=== PATIENT | female | born 1995 | race American Indian/Alaskan Native ===

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

== ENCOUNTER 2017-07-16 09:37 | Emergency (ER) | payer MEDICAID ==
[2017-07-16 10:01] VITALS: BP 118/99
--- NOTE | 2017-07-16 10:46 | EDM.PDOC ---
Scribed by Rayna Briones 07/16/17 1046 for Rhonda Cuellar NP ED HPI GENERAL MEDICAL PROBLEM - General Chief Complaint: Fever Stated Complaint: COUGH FEVER THROWING UP Time Seen by Provider: 07/16/17 10:15 Source of Information: Reports: Patient, RN, RN Notes Reviewed History Limitations: Reports: No Limitations - History of Present Illness INITIAL COMMENTS - FREE TEXT/NARRATIVE: Patient presents to ER with complaint of chest pain, cough, headache, nausea, and swollen glands. She has had fever, chills, sinus congestion, runny nose and sore throat. No vomiting or diarrhea. Duration: Getting Worse Location: Reports: Head, Chest Quality: Reports: Ache Severity: Moderate Improves with: Reports: None Worsens with: Reports: None Associated Symptoms: Reports: No Other Symptoms Headache Pain Score (Numeric/FACES): 6 - Related Data Allergies Allergy/AdvReac Type Severity Reaction Status Date / Time No Known Allergies Allergy Verified 07/16/17 10:16 Home Meds: Home Meds . [No Known Home Meds] 07/16/17 [History] Past Medical History HEENT History: Reports: None Cardiovascular History: Reports: None Respiratory History: Reports: None Gastrointestinal History: Reports: Other (See Below) Other Gastrointestinal History: heartburn with Genitourinary History: Reports: [employer] History: Reports: Musculoskeletal History: Reports: Other (See Below) Other Musculoskeletal History: left forearm Other Endocrine/Metabolic History: TSH 0.01, free T4 1.4 at 16w3d Hematologic History: Reports: Anemia, Blood Transfusion(s) - Infectious Disease History Infectious Disease History: Reports: None - Past Surgical History HEENT Surgical History: Reports: None Cardiovascular Surgical History: Reports: None Respiratory Surgical History: Reports: None GI Surgical History: Reports: Appendectomy Other GI Surgeries/Procedures: at 14yrs Female Surgical History: Reports: None Social & Family History - Family History Family Medical History: Noncontributory - Tobacco Use Smoking Status *Q: Never Smoker Second Hand Smoke Exposure: No - Caffeine Use Caffeine Use: Reports: None - Recreational Drug Use Recreational Drug Use: No ED ROS GENERAL - Review of Systems Review Of Systems: ROS reveals no pertinent complaints other than HPI. ED EXAM, GENERAL - Physical Exam Exam: See Below Exam Limited By: No Limitations General Appearance: Alert, WD/WN, No Apparent Distress Eye Exam: Bilateral Eye: Normal Inspection Ears: Normal External Exam, Normal Canal, Hearing Grossly Normal, Normal TMs Nose: Normal Inspection Throat/Mouth: Other (erythematous throat with +1 tonsils. ) Head: Atraumatic, Normocephalic Neck: Other (+1 anterior and cervical swollen glands. ) Respiratory/Chest: No Respiratory Distress, Lungs Clear, Normal Breath Sounds, No Accessory Muscle Use, Chest Non-Tender Cardiovascular: Normal Peripheral Pulses, Regular Rate, Rhythm, No Edema, No Gallop, No JVD, No Murmur, No Rub GI/Abdominal: Normal Bowel Sounds, Soft, Non-Tender, No Organomegaly, No Distention, No Abnormal Bruit, No Mass (Female) Exam: Deferred Rectal (Female) Exam: Deferred Back Exam: Normal Inspection, Full Range of Motion, NT Extremities: Normal Inspection, Normal Range of Motion, Non-Tender, Normal Capillary Refill, No Pedal Edema Neurological: Alert, Oriented, CN II-XII Intact, Normal Cognition, Normal Gait, Normal Reflexes, No Motor/Sensory Deficits Psychiatric: Normal Affect, Normal Mood Skin Exam: Warm, Dry, Intact, Normal Color, No Rash Lymphatic: No Adenopathy Course - Vital Signs Last Recorded V/S: Last Vital Signs Temp 99.7 F 07/16/17 10:00 Pulse 135 H 07/16/17 10:00 Resp 18 07/16/17 10:00 BP 118/99 H 07/16/17 10:00 Pulse Ox 96 07/16/17 10:00 - Orders/Labs/Meds Orders: Active Orders 24 hr Category Date Time Status CULTURE STREP A CONFIRMATION [] Stat Lab 07/16/17 09:50 Results STREP SCRN A RAPID W CULT CONF [] Stat Lab 07/16/17 09:50 Results Labs: Rapid strep: Negative. Influenza A and B:Negative. Departure - Departure Time of Disposition: 10:44 Disposition: Home, Self-Care 01 Condition: Fair Clinical Impression: Upper respiratory infection Qualifiers: URI type: unspecified viral URI Qualified Code(s): J06.9 - Acute upper respiratory infection, unspecified; B97.89 - Other viral agents as the cause of diseases classified elsewhere; B97.89 - Other viral agents as the cause of diseases classified elsewhere - Discharge Information Instructions: Fever, Adult, [id number] Forms: ED Department Discharge Additional Instructions: Prophylactic RX: Amoxicillin and Tamiflu Tylenol or ibuprofen for fever/pain Drink plenty of fluids Rest Follow up with your primary care facility next week - My Orders Last 24 Hours: My Active Orders 07/16/17 09:50 CULTURE STREP A CONFIRMATION [RM] Stat STREP SCRN A RAPID W CULT CONF [RM] Stat - Assessment/Plan Last 24 Hours: My Active Orders 07/16/17 09:50 CULTURE STREP A CONFIRMATION [RM] Stat STREP SCRN A RAPID W CULT CONF [RM] Stat I have read and agree with the documentation that has been completed regarding this visit. By signing this record, I attest that the documentation was completed in my physical presence and is an accurate record of the encounter.
== END 2017-07-16 10:58 | disposition home or self-care (01) ==
LOC: DL.ED 09:37
DX: J06.9 Acute upper respiratory infection, unspecified (principal)
CPT/HCPCS: 87081; 87430; 87804; 99283

== ENCOUNTER 2018-10-13 11:11 | Emergency (ER) | payer MEDICAID ==
[2018-10-13 11:35] VITALS: BP 138/60
--- NOTE | 2018-10-13 12:38 | EDM.PDOC ---
Scribed by Rayna Briones 10/13/18 1156 for Rhonda Cuellar NP ED HPI GENERAL MEDICAL PROBLEM - General Chief Complaint: ENT Problem Stated Complaint: SORE THROAT Time Seen by Provider: 10/13/18 11:40 Source of Information: Reports: Patient, RN, RN Notes Reviewed History Limitations: Reports: No Limitations - History of Present Illness INITIAL COMMENTS - FREE TEXT/NARRATIVE: Patient presents to ER with complaint of sore throat that she woke up with this morning. She states her child has been sick with tonsillitis and croup and treated with antibiotics and steroids and improving. She has had nasal congestion, post nasal drip, fever and chills. No nausea, vomiting or diarrhea. Onset: Today Duration: Getting Worse Location: Reports: Other (throat) Quality: Reports: Ache Severity: Moderate Improves with: Reports: None Worsens with: Reports: None Associated Symptoms: Reports: No Other Symptoms - Related Data Allergies Allergy/AdvReac Type Severity Reaction Status Date / Time No Known Allergies Allergy Verified 05/30/18 12:33 Home Meds: Home Meds Pnv No.122/Iron/Folic Acid [ Multi Tablet] 1 tab PO DAILY 05/08/18 [ History] Past Medical History HEENT History: Reports: None Cardiovascular History: Reports: None Respiratory History: Reports: Asthma Gastrointestinal History: Reports: GERD Other Gastrointestinal History: heartburn with 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: Musculoskeletal History: Reports: None Other Musculoskeletal History: left forearm Neurological History: Reports: None Psychiatric History: Reports: None Endocrine/Metabolic History: Reports: None Other Endocrine/Metabolic History: TSH 0.01, free T4 1.4 at 16w3d Hematologic History: Reports: Anemia, Blood Transfusion(s) Immunologic History: Reports: None Oncologic (Cancer) History: Reports: None Dermatologic History: Reports: None - Infectious Disease History Infectious Disease History: Reports: None - Past Surgical History Head Surgeries/Procedures: Reports: None HEENT Surgical History: Reports: None Cardiovascular Surgical History: Reports: None Respiratory Surgical History: Reports: None GI Surgical History: Reports: Appendectomy Other GI Surgeries/Procedures: at 14yrs Female Surgical History: Reports: None Social & Family History - Family History Family Medical History: Noncontributory - Tobacco Use Smoking Status *Q: Never Smoker Second Hand Smoke Exposure: No - Caffeine Use Caffeine Use: Reports: None - Recreational Drug Use Recreational Drug Use: No ED ROS ENT - Review of Systems Review Of Systems: ROS reveals no pertinent complaints other than HPI. ED EXAM, ENT - Physical Exam Exam: See Below Exam Limited By: No Limitations General Appearance: Alert, WD/WN, No Apparent Distress Eye Exam: Bilateral Eye: EOMI, Normal Inspection, PERRL Ears: Normal External Exam, Normal Canal, Hearing Grossly Normal, Normal TMs Nose: Normal Inspection, Normal Mucousa, No Blood Mouth/Throat: Peritonsillar Mass, Other (throat erythematous and tonsils +2. ) Head: Atraumatic, Normocephalic Neck: Other (tender bilaterally) Respiratory/Chest: No Respiratory Distress, Lungs Clear, Normal Breath Sounds, No Accessory Muscle Use, Chest Non-Tender Cardiovascular: Normal Peripheral Pulses, Regular Rate, Rhythm, No Edema, No Gallop, No JVD, No Murmur, No Rub GI/Abdominal: Normal Bowel Sounds, Soft, Non-Tender, No Organomegaly, No Distention, No Abnormal Bruit, No Mass (Female) Exam: Deferred Rectal (Female) Exam: Deferred Back: Normal Inspection, Full Range of Motion Extremities: Normal Inspection, Normal Range of Motion, Non-Tender, No Pedal Edema, Normal Capillary Refill Neurological: Alert, Oriented, CN II-XII Intact, Normal Cognition, Normal Gait, Normal Reflexes, No Motor/Sensory Deficits Psychiatric: Normal Affect, Normal Mood Skin: Warm, Dry, Intact, Normal Color, No Rash Lymphatic: Other (+2 tender anterior cervical) Course - Vital Signs Last Recorded V/S: Last Vital Signs Temp 98.3 F 10/13/18 11:30 Pulse 87 10/13/18 11:30 Resp 16 10/13/18 11:30 BP 138/60 10/13/18 11:30 Pulse Ox 98 10/13/18 11:30 - Orders/Labs/Meds Orders: Active Orders 24 hr Category Date Time Status CULTURE STREP A CONFIRMATION [] Stat Lab 10/13/18 11:22 Results STREP SCRN A RAPID W CULT CONF [] Stat Lab 10/13/18 11:22 Results Labs: Rapid strep: Negative. Departure - Departure Time of Disposition: 11:55 Disposition: Home, Self-Care 01 Condition: Fair Clinical Impression: Tonsillitis - Discharge Information *PRESCRIPTION DRUG MONITORING PROGRAM REVIEWED*: No *COPY OF PRESCRIPTION DRUG MONITORING REPORT IN PATIENT CHARLA: No Instructions: Tonsillitis, [id number] Forms: ED Department Discharge Additional Instructions: RX: Amoxicillin Follow up with your primary care facility Drink plenty of fluids May use Tylenol and/or Ibuprofen as directed for pain/fever - My Orders Last 24 Hours: My Active Orders 10/13/18 11:22 CULTURE STREP A CONFIRMATION [RM] Stat STREP SCRN A RAPID W CULT CONF [RM] Stat - Assessment/Plan Last 24 Hours: My Active Orders 10/13/18 11:22 CULTURE STREP A CONFIRMATION [RM] Stat STREP SCRN A RAPID W CULT CONF [RM] Stat I have read and agree with the documentation that has been completed regarding this visit. By signing this record, I attest that the documentation was completed in my physical presence and is an accurate record of the encounter.
== END 2018-10-13 12:00 | disposition home or self-care (01) ==
LOC: DL.ED 11:11
DX: J03.90 Acute tonsillitis, unspecified (principal)
CPT/HCPCS: 87081; 87430; 99283

== ENCOUNTER 2019-03-15 10:18 | Emergency (ER) | payer MEDICAID ==
[2019-03-15 10:43] VITALS: BP 110/91; PULSE 68
--- NOTE | 2019-03-15 11:23 | EDM.PDOC ---
ED HPI GENERAL MEDICAL PROBLEM - General Chief Complaint: ENT Problem Stated Complaint: SICK Time Seen by Provider: 03/15/19 10:45 Source of Information: Reports: Patient History Limitations: Reports: No Limitations - History of Present Illness INITIAL COMMENTS - FREE TEXT/NARRATIVE: ED with c/o sore throat since yesterday, feel scratchy, No fever or chills. Tylenol yesterday. No ear pain. NO cough. 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: Musculoskeletal History: Reports: None Other Musculoskeletal History: left forearm Neurological History: Reports: None Psychiatric History: Reports: None Endocrine/Metabolic History: Reports: None Other Endocrine/Metabolic History: TSH 0.01, free T4 1.4 at 16w3d Hematologic History: Reports: Anemia, Blood Transfusion(s) Immunologic History: Reports: None Oncologic (Cancer) History: Reports: None Dermatologic History: Reports: None - Infectious Disease History Infectious Disease History: Reports: None - Past Surgical History Head Surgeries/Procedures: Reports: None HEENT Surgical History: Reports: None Cardiovascular Surgical History: Reports: None Respiratory Surgical History: Reports: None GI Surgical History: Reports: Appendectomy Other GI Surgeries/Procedures: at 14yrs Female Surgical History: Reports: None Social & Family History - Family History Family Medical History: Noncontributory - Tobacco Use Smoking Status *Q: Never Smoker - Caffeine Use Caffeine Use: Reports: None - Recreational Drug Use Recreational Drug Use: No ED ROS ENT - Review of Systems Review Of Systems: ROS reveals no pertinent complaints other than HPI. ED EXAM, ENT - Physical Exam Exam: See Below Exam Limited By: No Limitations General Appearance: Alert, No Apparent Distress Eye Exam: Bilateral Eye: EOMI Ears: Normal External Exam, Normal TMs Nose: Normal Inspection Mouth/Throat: Pharyngeal Erythema (mild) Head: Atraumatic, Normocephalic Neck: Normal Inspection Respiratory/Chest: No Respiratory Distress, Lungs Clear, Normal Breath Sounds, No Accessory Muscle Use Cardiovascular: Normal Peripheral Pulses, Regular Rate, Rhythm GI/Abdominal: Normal Bowel Sounds, Soft Neurological: Alert, Oriented Psychiatric: Normal Affect Skin: Warm, Dry, Intact, Normal Color Course - Vital Signs Last Recorded V/S: Last Vital Signs Temp 97.8 F 03/15/19 10:37 Pulse 68 03/15/19 10:37 Resp 18 03/15/19 10:37 BP 110/91 H 03/15/19 10:37 Pulse Ox 97 03/15/19 10:37 - Orders/Labs/Meds Orders: Active Orders 24 hr Category Date Time Status CULTURE STREP A CONFIRMATION [RM] Stat Lab 03/15/19 10:21 Results STREP SCRN A RAPID W CULT CONF [] Stat Lab 03/15/19 10:21 Results Departure - Departure Time of Disposition: 11:22 Disposition: Home, Self-Care 01 Condition: Good Clinical Impression: Pharyngitis Qualifiers: Pharyngitis/tonsillitis etiology: unspecified etiology Qualified Code(s): J02.9 - Acute pharyngitis, unspecified - Discharge Information *PRESCRIPTION DRUG MONITORING PROGRAM REVIEWED*: No *COPY OF PRESCRIPTION DRUG MONITORING REPORT IN PATIENT CHARLA: No Instructions: Sore Throat, [id number] Forms: ED Department Discharge Additional Instructions: increase fluids salt water gargles as needed alternate tylenol and ibuprofen every 4 hours as needed for discomfort follow up if symptoms worsen - My Orders Last 24 Hours: My Active Orders 03/15/19 10:21 CULTURE STREP A CONFIRMATION [RM] Stat STREP SCRN A RAPID W CULT CONF [] Stat - Assessment/Plan Last 24 Hours: My Active Orders 03/15/19 10:21 CULTURE STREP A CONFIRMATION [RM] Stat STREP SCRN A RAPID W CULT CONF [] Stat
== END 2019-03-15 11:35 | disposition home or self-care (01) ==
LOC: DL.ED 10:18
DX: J02.9 Acute pharyngitis, unspecified (principal); Z86.2 Personal history of diseases of the blood and blood-forming organs and certain disorders involving the immune mechanism
CPT/HCPCS: 87081; 87430; 99282

== ENCOUNTER 2020-03-23 23:26 | Inpatient (IN) | payer MEDICAID, OTHER ==
[2020-03-24] MEDS ORDERED: Penicillin G Potassium 5,000,000 Unit Vial ONE (00:26)
[2020-03-24] MEDS ORDERED: Tranexamic Acid 1,000 MG in Sodium Chloride 0.9% 100 ML IV PRN (00:30)
[2020-03-24] MEDS ORDERED: Acetaminophen 325 MG Tab PO PRN (00:30)
[2020-03-24] MEDS ORDERED: Misoprostol 400 MCG (4 X 100 MCG TAB) RECTAL PRN (00:30)
[2020-03-24] MEDS ORDERED: Carboprost Tromethamine 250 MCG/1 ML Amp IM PRN (00:30)
[2020-03-24] MEDS ORDERED: Lidocaine 1% 30 ML SDV INJECT PRN (00:30)
[2020-03-24] MEDS ORDERED: Ondansetron 4 MG/2 ML SDV IVPUSH PRN (00:30)
[2020-03-24] MEDS ORDERED: Methylergonovine 0.2 MG/1 ML Amp IM PRN (00:30)
[2020-03-24] MEDS ORDERED: Sodium Chloride 0.9% 10 ML Syringe FLUSH PRN (00:30)
[2020-03-24] MEDS ORDERED: Lactated Ringers 1,000 ML IV SCH (00:30)
--- NOTE | 2020-03-24 00:41 | US ---
PROCEDURE INFORMATION: Exam: US , Limited Exam date and time: 03/24/2020 12:06 AM Age: 24 years old Clinical indication: Antepartum complications; Other: No care; ; Patient HX: ? Size and dates, placenta location, lie TECHNIQUE: Imaging protocol: Real-time ultrasound of the maternal uterus with image documentation. Exam focused on the clinical indication. COMPARISON: No relevant prior studies available. FINDINGS: Gestation: Single intrauterine gestational sac with single viable fetus. The sports activities foul judge reports spontaneous movement during the exam. Limited assessment of anatomy. stomach, bladder, and kidneys are unremarkable. heart rate: heart rate is 147 BPM. Presentation: Cephalic presentation. Placenta: The placental location is fundal. No evidence of placental abruption. Amniotic fluid: Amniotic fluid volume is subjectively within normal limits. BIOMETRY: Gestational age (AUA): 37 weeks, 4 days. Estimated delivery date is 04/10/2020. Estimated weight: 3442 g (7 lb, 9 oz) Biparietal diameter: 8.5 cm (34 weeks, 2 days) Head circumference: 32.0 cm (36 weeks, 1 day) Abdominal circumference: 34.7 cm (38 weeks, 5 days) Femur length: 8.0 cm (41 weeks, 0 days) MATERNAL: Cervix: The cervix is not well seen on this exam. IMPRESSION: Limited obstetric ultrasound. Single viable intrauterine gestation with estimated gestational age of 37 weeks, 4 days. No acute findings.
--- NOTE | 2020-03-24 00:58 | PCM.LDHP ---
L&D History of Present Illness - General Date of Service: 03/24/20 (Admit H&P) Admit Problem/Dx: Patient Status Order with Admit Dx/Problem 03/24/20 00:30 Patient Status [ADT] Routine Admission Diagnosis/Problem Admission Diagnosis/Problem Labor established Source of Information: Patient, Old Records, Provider, RN History Limitations: Reports: No Limitations, Other (no care) - History of Present Illness Introduction:: 24yo NA who presents in labor with no care but appears near term. baby active. no bleeding no LOF no pre-E sx. taking gummy vitamins only. no allergies. cxns started this evening, getting stronger and closer. no other concerns. Timing/Duration: Reports: minutes: (2-5), getting worse Location, : Reports: Uterus Severity: Moderate Associated Symptoms: Reports: vaginal discharge - Related Data Allergies/Adverse Reactions: Allergies Allergy/AdvReac Type Severity Reaction Status Date / Time No Known Allergies Allergy Verified 03/23/20 23:45 Home Medications: Home Meds Vit with Ca/FA/Iron [ Plus Iron] 1 tab PO DAILY 03/23/20 [History] Past Medical History HEENT History: Reports: None Cardiovascular History: Reports: None Respiratory History: Reports: Asthma Gastrointestinal History: Reports: GERD Other Gastrointestinal History: heartburn with 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 see notes for details. hmb Musculoskeletal History: Reports: None Other Musculoskeletal History: left forearm Neurological History: Reports: None Psychiatric History: Reports: None Endocrine/Metabolic History: Reports: None Other Endocrine/Metabolic History: TSH 0.01, free T4 1.4 at 16w3d Hematologic History: Reports: Anemia, Blood Transfusion(s) Immunologic History: Reports: None Oncologic (Cancer) History: Reports: None Dermatologic History: Reports: None - Infectious Disease History Infectious Disease History: Reports: None - Past Surgical History Head Surgeries/Procedures: Reports: None HEENT Surgical History: Reports: None Cardiovascular Surgical History: Reports: None Respiratory Surgical History: Reports: None GI Surgical History: Reports: Appendectomy Other GI Surgeries/Procedures: at 14yrs Female Surgical History: Reports: None Social & Family History - Family History Family Medical History: Noncontributory Other OBGYN Family History: mom with SAB X 2 Neurological: Reports: Seizure (dad) Endocrine/Metabolic: Reports: Diabetes, type II (mom and PGM) - Tobacco Use Smoking Status *Q: Never Smoker Second Hand Smoke Exposure: No - Caffeine Use Caffeine Use: Reports: Soda - Alcohol Use Alcohol Use History: No Alcohol Use Comment: denies use. hmb - Recreational Drug Use Recreational Drug Use: No Drug Use in Last 12 Months: Yes Recreational Drug Type: Reports: Marijuana/Hashish Recreational Drug Use Comment: denies current use--marijuana during first part--states helped with nausea. hmb - Living Situation & Occupation Living situation: Reports: Single, with Family Social History [place] MGF, and her 4 children. 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 FOB is involved "some"--this is their first child together. Plans to keep child and parent. denies cigarete smoking or alcohol use. Admits to marijuana use during early --states it helped with her nausea. Denies any other illicit drug use. H&P Review of Systems - Review of Systems: Review Of Systems: Comprehensive ROS is negative, except as noted in HPI. (will plan flu shot before discharge.) L&D Exam - Exam Exam: See Below - Vital Signs Weight: 136 lb - OB Specific Contraction Intensity: Moderate to Strong Movement: Active Heart Tones: Present Heart Tones per Min: 145 Heart Rate (FHR) Variability: Moderate (6-25 bmp) Presentation: Vertex Estimated Weight: 7 1/2 # +/- - Quiroz Score Quiroz Score Cervix Position: Midposition Quiroz Score Consistency: Soft Quiroz Score Effacement: >80% Quiroz Score Dilation: > 5 cm Quiroz Score Infant's Station: +1, +2 Quiroz Score Total: 12 - Exam General: Alert, Oriented HEENT: Conjunctiva Clear, EOMI, Hearing Intact, Nares Patent, PERRLA Neck: Supple, Trachea Midline Lungs: Clear to Auscultation, Normal Respiratory Effort Cardiovascular: Regular Rate, Regular Rhythm GI/Abdominal Exam: Normal Bowel Sounds, Soft, Non-Tender, No Abnormal Bruit, Pelvis Stable Rectal Exam: Normal Exam, Deferred Genitourinary: Normal external exam, Cervical dilitation, Enlarged uterus Back Exam: Normal Inspection, Full Range of Motion Extremities: Normal Inspection, Normal Range of Motion, Non-Tender, No Pedal Edema, Normal Capillary Refill Skin: Warm, Dry, Intact Neurological: Strength Equal Bilateral, Normal Speech, Normal Tone, Sensation Intact Psychiatric: Alert, Normal Affect, Normal Mood - Patient Data Lab Results Last 24 hrs: Laboratory Results - last 24 hr 03/23/20 03/23/20 Range/Units 23:37 23:37 WBC 8.3 (5.0-10.0) 10^3/uL RBC 4.47 (4.2-5.4) 10^6/uL Hgb 10.1 L D (12.0-16.0) g/dL Hct 32.7 L (37.0-47.0) % MCV 73.2 L D (80-100) fL MCH 22.6 L (27.0-34.0) pg MCHC 30.9 L (33.0-35.0) g/dL Plt Count 176 (150-450) 10^3/uL BUN 8 (7-18) mg/dL Creatinine 0.57 (0.55-1.02) mg/dL Est Cr Clr Drug Dosing 122.44 mL/min Estimated GFR (MDRD) > 60 Uric Acid 4.7 (2.6-6.0) mg/dL AST 15 (15-37) U/L ALT 15 (14-59) U/L Lactate Dehydrogenase 306 H (81-234) U/L Result Diagrams: 03/23/20 23:37 03/23/20 23:37 Imaging Impressions Last 24 hrs: Ultrasound: SLIUP, vertex, FHR 147 AFV WNL EFW 7lb 9oz measurements: FL 41w, AC 38w5d, HC 36w1d, BPD 34w2d, AUA 37w4d see reports for details. hmb - Problem List (1) Term SNOMED Code(s): 46965826 ICD Code: Z34.90 - ENCNTR FOR SUPRVSN OF NORMAL , UNSP, UNSP TRIMESTER Status: Acute Current Visit: Yes (2) No care in current SNOMED Code(s): 128442968 ICD Code: O09.30 - SUPRVSN OF PREG W INSUFFICIENT ANTENAT CARE, UNSP TRIMESTER Status: Acute Current Visit: Yes (3) Blood type O- SNOMED Code(s): 965344780 ICD Code: Z67.41 - TYPE O BLOOD, RH NEGATIVE Status: Acute Current Visit: Yes (4) Screening for group B Streptococcus not performed SNOMED Code(s): 082403943 ICD Code: MNT8954 - Status: Acute Current Visit: Yes (5) High risk , antepartum SNOMED Code(s): 00854256 ICD Code: O09.90 - SUPERVISION OF HIGH RISK , UNSP, UNSP TRIMESTER Status: Acute Current Visit: Yes (6) Anemia affecting SNOMED Code(s): 75687510 ICD Code: O99.019 - ANEMIA COMPLICATING , UNSPECIFIED TRIMESTER Status: Acute Current Visit: Yes (7) Needs flu shot Status: Acute Current Visit: Yes (8) Hx of sexually transmitted disease SNOMED Code(s): 046771762 ICD Code: Z86.19 - PERSONAL HISTORY OF OTHER INFECTIOUS AND PARASITIC DISEASES Status: Acute Current Visit: Yes (9) Hx of pre-eclampsia, prior , currently SNOMED Code(s): 198171581010691, 984167894556501 ICD Code: O09.299 - SUPRVSN OF PREG W POOR REPRODCTV OR OBSTET HISTORY, UNSP TRI Status: Acute Current Visit: Yes (10) History of severe pre-eclampsia SNOMED Code(s): 271887896 ICD Code: Z87.59 - PERSONAL HISTORY OF COMP OF PREG, CHLDBRTH AND THE PUERP Status: Acute Current Visit: Yes (11) Hx of transfusion of whole blood SNOMED Code(s): 322691659 ICD Code: Z92.89 - PERSONAL HISTORY OF OTHER MEDICAL TREATMENT Status: Acute Current Visit: Yes Problem List Initiated/Reviewed/Updated: Yes Orders Last 24hrs: Active Orders 24 hr Category Date Time Status Patient Status [ADT] Routine ADT 03/24/20 00:30 Active Communication Order [RC] ASDIRECTED Care 03/24/20 00:30 Active Heart Rate [RC] CONTINUOUS Care 03/23/20 23:24 Active Heart Tones [RC] PER UNIT ROUTINE Care 03/24/20 00:30 Active Non Stress Test [RC] PER UNIT ROUTINE Care 03/24/20 00:32 Active Notify Provider Vital Signs OB [RC] ASDIRECTED Care 03/24/20 00:30 Active Notify Provider [RC] PRN Care 03/24/20 00:30 Active OB Check [OM.PC] Click To Edit Care 03/23/20 23:24 Ordered POC Labs [RC] ASDIRECTED Care 03/23/20 23:24 Active Up ad [place] [RC] ASDIRECTED Care 03/24/20 00:30 Active Vital Signs [RC] PER UNIT ROUTINE Care 03/24/20 00:30 Active Regular Diet [DIET] Diet 03/24/20 Breakfast Active CHLAMYDIA AND GONORRHEA BY TMA Routine Lab 03/23/20 23:37 Received CORONAVIRUS COVID-19 THA [MOLEC] Stat Lab 03/24/20 00:37 Ordered CORONAVIRUS COVID-19 PCR PHL Stat Lab 03/24/20 00:30 Ordered CULTURE GROUP B STREP [RM] Routine Lab 03/23/20 23:43 Received DRUG SCREEN URINE BIORAD [URCHEM] Routine Lab 03/23/20 23:43 Received HBSAG SCREEN [REF] Urgent Lab 03/23/20 23:37 Received HEP C VIRUS AB [REF] Urgent Lab 03/23/20 23:37 Received HIV-1/2 AG/AB COMBO 4TH GEN [CHEM] Routine Lab 03/23/20 23:24 Ordered MISC TEST Routine Lab 03/23/20 23:24 Ordered PROTEIN/CREATININE RATIO,URINE [URCHEM] Routine Lab 03/23/20 23:59 Received RPR (SYPHILIS SERO) W/ RFLX [REF] Routine Lab 03/23/20 23:37 Received RUBELLA ANTIBODY, IGG [REF] Routine Lab 03/23/20 23:37 Received TYPE AND SCREEN [BBK] Routine Lab 03/23/20 23:37 Received UA RFX OMI AND CULT IF INDIC [URIN] Routine Lab 03/23/20 23:43 Received WET PREP [MYC] Routine Lab 03/23/20 23:43 Received Acetaminophen [TylenoL] Med 03/24/20 00:30 Active 650 mg PO Q4H PRN Carboprost Tromethamine [Hemabate DS] Med 03/24/20 00:30 Active 250 mcg IM ASDIRECTED PRN Lactated Ringers [Ringers, Lactated] 1,000 ml Med 03/24/20 00:30 Active IV ASDIRECTED Lidocaine 1% [Xylocaine-MPF 1%] Med 03/24/20 00:30 Active 30 ml INJECT ASDIRECTED PRN Methylergonovine [Methergine] Med 03/24/20 00:30 Active 0.2 mg IM ASDIRECTED PRN Ondansetron [Zofran] Med 03/24/20 00:30 Active 4 mg IVPUSH Q4H PRN Oxytocin/Normal Saline [Pitocin in NS 30 UNIT/500 ML] Med 03/24/20 00:30 Active 30 unit in 500 ml IV TITRATE Penicillin G Potassium [Pfizerpen] 2.5 millunits Med 03/24/20 05:00 Active Sodium Chloride 0.9% [Normal Saline] 100 ml IV Q4H Penicillin G Potassium [Pfizerpen] 5 millunits Med 03/24/20 01:00 Active Sodium Chloride 0.9% [Normal Saline] 100 ml IV ONETIME Sodium Chloride 0.9% [Saline Flush] Med 03/24/20 00:30 Active 10 ml FLUSH ASDIRECTED PRN Tranexamic Acid [Cyklokapron] 1,000 mg Med 03/24/20 00:30 Active Sodium Chloride 0.9% [Normal Saline] 100 ml IV ONETIME miSOPROStoL [Cytotec] Med 03/24/20 00:30 Active 800 mcg RECTAL ASDIRECTED PRN Saline Lock Insert [OM.PC] Routine Oth 03/24/20 00:30 Ordered Resuscitation Status Routine Resus Stat 03/24/20 00:30 Ordered Medication Orders Acetaminophen (Tylenol) 650 mg PO Q4H PRN PRN Reason: Pain (Mild 1-3) and fever Carboprost Tromethamine (Hemabate Ds) 250 mcg IM ASDIRECTED PRN PRN Reason: HEMORRHAGE Lactated Ringer's (Ringers, Lactated) 1,000 mls @ 125 mls/hr IV ASDIRECTED IRENA Tranexamic Acid 1,000 mg/ (Sodium Chloride) 110 mls @ 660 mls/hr IV ONETIME PRN PRN Reason: Bleeding Oxytocin/Sodium Chloride (Pitocin In Ns 30 Unit/500 Ml) 30 unit in 500 mls @ 2 mls/hr IV TITRATE IRENA; Protocol Penicillin G Potassium 5 (millunits/ Sodium Chloride) 100 mls @ 200 mls/hr IV ONETIME ONE Stop: 03/24/20 01:29 Penicillin G Potassium 2.5 (millunits/ Sodium Chloride) 100 mls @ 200 mls/hr IV Q4H IRENA Lidocaine HCl (Xylocaine-Mpf 1%) 30 ml INJECT ASDIRECTED PRN PRN Reason: Perineal Repair Methylergonovine Maleate (Methergine) 0.2 mg IM ASDIRECTED PRN PRN Reason: Hemorrhage Misoprostol (Cytotec) 800 mcg RECTAL ASDIRECTED PRN PRN Reason: Hemorrhage Ondansetron HCl (Zofran) 4 mg IVPUSH Q4H PRN PRN Reason: Nausea/Vomiting Sodium Chloride (Saline Flush) 10 ml FLUSH ASDIRECTED PRN PRN Reason: Keep Vein Open Assessment/Plan Comment:: Assessment/Plan: Fish is a delightful 24yo NA in active labor with no care Appears near term clinically and by STAT US Blood type O- Will assess cord blood type/KLEBER and need for RhoGam GBS status unknown-- will use PCN for prophylaxis. OB labs drawn and pending. COVID negative on admit NST reactive on admit with Cat 1 tracing Anemia with hgb 10.1 on admit, PLT WNL @ 176, WBC WNL 8.2 High risk with hx PPH/blood transfusion, prior pre-E/HELLP (PIH labs reassuring on admit, and VSS/clinical pix WNL) will plan flu shot will check UDS, and cord segment after delivery. 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 plan to breastfeed. all questions answered. routine admit orders. b
[2020-03-24] MEDS ORDERED: Penicillin G Potassium 5 MILLUNITS in Sodium Chloride 0.9% 100 ML IV ONE (01:00)
[2020-03-24] MEDS: Oxytocin/Normal Saline 30 UNIT/500 ML BAG IV SCH ×3 (02:00→04:37)
--- NOTE | 2020-03-24 02:45 | PCM.DEL ---
L & D Note - General Info Date of Service: 03/24/20 (time of delivery 0158) - Delivery Note Labor: Spontaneous Delivery Outcome: Livebirth Infant Delivery Method: Spontaneous Vaginal Delivery-Single Delivery Mode: Vacuum Extraction (with 1 cxn) Presentation: Right Occiput Posterior (ROP) Nuchal Cord: None Prep: Povidone-Iodine (Betadine Anesthesia Type: Nitrous Oxide Amniotic Fluid Description: Clear Episiotomy Type: None Laceration: None Placenta: Intact, Expressed Cord: 3 Vessels Estimated Blood Loss: 400 Resuscitation Needed: No : Bulb Syringe, Stimulated, Warmed, Hammond Used Provider: Britni Graham Score 1 min: 9 Score 5 min: 9 Second Stage Interventions: Reports: Encouragement Given, Pushing Effectively, Pushing, Feet in Foot Rests, Pushing, Pulls Own Legs Back Delivery Comments (Free Text/Narrative):: anterior lip of cervix, with large bag of fluid in vagina. AROM with return large amount clear fluid. felt urge to push with cxns then. pushing well. baby OP. pulling own legs back. requesting assistance with vacuum. Kiwi applied X 1 cxn as baby was noted to be ROP position, and delivered with one cxn of pushing. then shoulders delivered, followed by remainder of baby girl. meconium at . strong cry at . baby girl delivered to mom's chest for skin to skin contact and bonding. Cord doubly clamped and cut by CHRISTIAN Millan. cord blood obtained. Baby found to be 8lb 9oz/ 3890g APGARs 9 & 9 placenta delivered intact and uterus firmed up with pitocin infusion, then had episode of bogginess, responding to increased pitocin infusion, and IM methergine. EBL 400cc. perineum and vaginal completely intact. mom and baby both doing well. rooming in and will plan on routine nursery and cares and orders. all questions answered for María they appear happy with care and plan. [facility] Vacuum Extractor Progress Note - Alternative Labor Strategies Considered Alternative Labor Strategies Considered:: Reports: Yes Strategies Considered:: Reports: Contraction Intensity Adequate, Position Changes Used to Facilitate Rotation & Descent, Empty Bladder, Rest Indications Considered:: Reports: Yes Indications:: Reports: Shortening of 2nd Stage for Maternal Benefit Time Out:: Reports: Yes Comments:: baby OP, vacuum applied with only 1 cxn--delivered with one push after application. hmb - Patient Prepared Patient Prepared:: Reports: Yes Informed Consent:: Reports: Verbal Risks: Reports: Yes Anesthesia/Analgesia Adequate:: Reports: Yes - Probability of Success High Probability of Success:: Reports: Yes Weight Estimated:: Reports: AGA Patient Diabetic:: Reports: No Pelvis Adequate:: Reports: Yes Position:: ROP Asynclitic:: Reports: No Station:: +3 - Application Time Maximum Application Time & Number of Pop-Offs Predetermined:: Reports: Yes Type of Vacuum Used:: Reports: Cup: Santana type Vacuum Extraction: Successful - Exit Strategy Exit strategy available:: Reports: Yes and resuscitation teams readily available:: Reports: Yes Consult as indicated:: not indicated - General Info Date of Service: 03/24/20 - Patient Data Weight - Most Recent: 136 lb Lab Results Last 24 Hours: Laboratory Results - last 24 hr 03/23/20 03/23/20 03/23/20 Range/Units 23:24 23:37 23:37 WBC 8.3 (5.0-10.0) 10^3/uL RBC 4.47 (4.2-5.4) 10^6/uL Hgb 10.1 L D (12.0-16.0) g/dL Hct 32.7 L (37.0-47.0) % MCV 73.2 L D (80-100) fL MCH 22.6 L (27.0-34.0) pg MCHC 30.9 L (33.0-35.0) g/dL Plt Count 176 (150-450) 10^3/uL BUN (7-18) mg/dL Creatinine (0.55-1.02) mg/dL Est Cr Clr Drug Dosing mL/min Estimated GFR (MDRD) Uric Acid (2.6-6.0) mg/dL AST (15-37) U/L ALT (14-59) U/L Lactate Dehydrogenase (81-234) U/L Urine Color (YELLOW) Urine Appearance (CLEAR) Urine pH (5.0-9.0) Ur Specific Fletcher (1.005-1.030) Urine Protein (NEGATIVE) Urine Glucose (UA) (NEGATIVE) Urine Ketones (NEGATIVE) Urine Occult Blood (NEGATIVE) Urine Nitrite (NEGATIVE) Urine Bilirubin (NEGATIVE) Urine Urobilinogen (0.2-1.0) mg/dL Ur Leukocyte Esterase (NEGATIVE) Urine RBC /HPF Urine WBC (0-5/HPF) /HPF Ur Epithelial Cells (NOT SEEN) /HPF Amorphous Sediment (NOT SEEN) /HPF Urine Bacteria (0-FEW/HPF) /HPF Urine Mucus (NOT SEEN) /LPF Ur Random Creatinine (No establ ref range) mg/dL U Random Total Protein (0.0-11.9) mg/dL Protein/Creatinin Ratio (<150.0) mg/g Urine Opiates Screen (NEGATIVE) Ur Oxycodone Screen (NEGATIVE) Urine Methadone Screen (NEGATIVE) Ur Barbiturates Screen (NEGATIVE) U Tricyclic Antidepress (NEGATIVE) Ur Phencyclidine Scrn (NEGATIVE) Ur Amphetamine Screen (NEGATIVE) U Methamphetamines Scrn (NEGATIVE) Urine MDMA Screen (NEGATIVE) U Benzodiazepines Scrn (NEGATIVE) Urine Cocaine Screen (NEGATIVE) U Marijuana (THC) Screen (NEGATIVE) HIV-1 Antibody Non-reactive (NONREACTIVE) HIV-2 Antibody Non-reactive (NONREACTIVE) HIV P24 Antigen Non-reactive (NONREACTIVE) SARS CoV-2 RNA Rapid THA (NEGATIVE) Blood Type O NEGATIVE Gel Antibody Screen Negative 03/23/20 03/23/20 03/23/20 Range/Units 23:37 23:43 23:43 WBC (5.0-10.0) 10^3/uL RBC (4.2-5.4) 10^6/uL Hgb (12.0-16.0) g/dL Hct (37.0-47.0) % MCV (80-100) fL MCH (27.0-34.0) pg MCHC (33.0-35.0) g/dL Plt Count (150-450) 10^3/uL BUN 8 (7-18) mg/dL Creatinine 0.57 (0.55-1.02) mg/dL Est Cr Clr Drug Dosing 122.44 mL/min Estimated GFR (MDRD) > 60 Uric Acid 4.7 (2.6-6.0) mg/dL AST 15 (15-37) U/L ALT 15 (14-59) U/L Lactate Dehydrogenase 306 H (81-234) U/L Urine Color Dark yellow (YELLOW) Urine Appearance Slightly cloudy (CLEAR) Urine pH 6.0 (5.0-9.0) Ur Specific Fletcher >= 1.030 (1.005-1.030) Urine Protein 30 H (NEGATIVE) Urine Glucose (UA) Negative (NEGATIVE) Urine Ketones Negative (NEGATIVE) Urine Occult Blood Negative (NEGATIVE) Urine Nitrite Negative (NEGATIVE) Urine Bilirubin Negative (NEGATIVE) Urine Urobilinogen 1.0 (0.2-1.0) mg/dL Ur Leukocyte Esterase Trace H (NEGATIVE) Urine RBC Not seen /HPF Urine WBC 5-10 H (0-5/HPF) /HPF Ur Epithelial Cells Moderate H (NOT SEEN) /HPF Amorphous Sediment Few (NOT SEEN) /HPF Urine Bacteria Few (0-FEW/HPF) /HPF Urine Mucus Rare (NOT SEEN) /LPF Ur Random Creatinine (No establ ref range) mg/dL U Random Total Protein (0.0-11.9) mg/dL Protein/Creatinin Ratio (<150.0) mg/g Urine Opiates Screen Negative (NEGATIVE) Ur Oxycodone Screen Negative (NEGATIVE) Urine Methadone Screen Negative (NEGATIVE) Ur Barbiturates Screen Negative (NEGATIVE) U Tricyclic Antidepress Negative (NEGATIVE) Ur Phencyclidine Scrn Negative (NEGATIVE) Ur Amphetamine Screen Negative (NEGATIVE) U Methamphetamines Scrn Negative (NEGATIVE) Urine MDMA Screen Negative (NEGATIVE) U Benzodiazepines Scrn Negative (NEGATIVE) Urine Cocaine Screen Negative (NEGATIVE) U Marijuana (THC) Screen Negative (NEGATIVE) HIV-1 Antibody (NONREACTIVE) HIV-2 Antibody (NONREACTIVE) HIV P24 Antigen (NONREACTIVE) SARS CoV-2 RNA Rapid THA (NEGATIVE) Blood Type Gel Antibody Screen 03/23/20 03/24/20 Range/Units 23:59 00:30 WBC (5.0-10.0) 10^3/uL RBC (4.2-5.4) 10^6/uL Hgb (12.0-16.0) g/dL Hct (37.0-47.0) % MCV (80-100) fL MCH (27.0-34.0) pg MCHC (33.0-35.0) g/dL Plt Count (150-450) 10^3/uL BUN (7-18) mg/dL Creatinine (0.55-1.02) mg/dL Est Cr Clr Drug Dosing mL/min Estimated GFR (MDRD) Uric Acid (2.6-6.0) mg/dL AST (15-37) U/L ALT (14-59) U/L Lactate Dehydrogenase (81-234) U/L Urine Color (YELLOW) Urine Appearance (CLEAR) Urine pH (5.0-9.0) Ur Specific Fletcher (1.005-1.030) Urine Protein (NEGATIVE) Urine Glucose (UA) (NEGATIVE) Urine Ketones (NEGATIVE) Urine Occult Blood (NEGATIVE) Urine Nitrite (NEGATIVE) Urine Bilirubin (NEGATIVE) Urine Urobilinogen (0.2-1.0) mg/dL Ur Leukocyte Esterase (NEGATIVE) Urine RBC /HPF Urine WBC (0-5/HPF) /HPF Ur Epithelial Cells (NOT SEEN) /HPF Amorphous Sediment (NOT SEEN) /HPF Urine Bacteria (0-FEW/HPF) /HPF Urine Mucus (NOT SEEN) /LPF Ur Random Creatinine 289.55 (No establ ref range) mg/dL U Random Total Protein 32.6 H (0.0-11.9) mg/dL Protein/Creatinin Ratio 112.6 (<150.0) mg/g Urine Opiates Screen (NEGATIVE) Ur Oxycodone Screen (NEGATIVE) Urine Methadone Screen (NEGATIVE) Ur Barbiturates Screen (NEGATIVE) U Tricyclic Antidepress (NEGATIVE) Ur Phencyclidine Scrn (NEGATIVE) Ur Amphetamine Screen (NEGATIVE) U Methamphetamines Scrn (NEGATIVE) Urine MDMA Screen (NEGATIVE) U Benzodiazepines Scrn (NEGATIVE) Urine Cocaine Screen (NEGATIVE) U Marijuana (THC) Screen (NEGATIVE) HIV-1 Antibody (NONREACTIVE) HIV-2 Antibody (NONREACTIVE) HIV P24 Antigen (NONREACTIVE) SARS CoV-2 RNA Rapid THA Negative (NEGATIVE) Blood Type Gel Antibody Screen Scar Results Last 24 Hours: Microbiology 03/23/20 23:43 Wet Prep - Final Vagina Med Orders - Current: Current Medications Acetaminophen (Tylenol) 650 mg PO Q4H PRN PRN Reason: Pain (Mild 1-3) and fever Carboprost Tromethamine (Hemabate Ds) 250 mcg IM ASDIRECTED PRN PRN Reason: HEMORRHAGE Lactated Ringer's (Ringers, Lactated) 1,000 mls @ 125 mls/hr IV ASDIRECTED IRENA Last Admin: 03/24/20 00:45 Dose: 125 mls/hr Documented by: Tranexamic Acid 1,000 mg/ (Sodium Chloride) 110 mls @ 660 mls/hr IV ONETIME PRN PRN Reason: Bleeding Oxytocin/Sodium Chloride (Pitocin In Ns 30 Unit/500 Ml) 30 unit in 500 mls @ 2 mls/hr IV TITRATE IRENA; Protocol Last Titration: 03/24/20 02:25 Dose: 500 munits/min, 500 mls/hr Documented by: Penicillin G Potassium 2.5 (millunits/ Sodium Chloride) 100 mls @ 200 mls/hr IV Q4H IRENA Lidocaine HCl (Xylocaine-Mpf 1%) 30 ml INJECT ASDIRECTED PRN PRN Reason: Perineal Repair Methylergonovine Maleate (Methergine) 0.2 mg IM ASDIRECTED PRN PRN Reason: Hemorrhage Last Admin: 03/24/20 02:23 Dose: 0.2 mg Documented by: Misoprostol (Cytotec) 800 mcg RECTAL ASDIRECTED PRN PRN Reason: Hemorrhage Ondansetron HCl (Zofran) 4 mg IVPUSH Q4H PRN PRN Reason: Nausea/Vomiting Sodium Chloride (Saline Flush) 10 ml FLUSH ASDIRECTED PRN PRN Reason: Keep Vein Open Discontinued Medications Penicillin G Potassium 5 (millunits/ Sodium Chloride) 100 mls @ 200 mls/hr IV ONETIME ONE Stop: 03/24/20 01:29 Last Admin: 03/24/20 00:45 Dose: 200 mls/hr Documented by: Influenza Virus Vaccine (Flucelvax Quad Syr) 60 mcg IM .ONCE ONE Stop: 03/24/20 01:29 Penicillin G Potassium (Pfizerpen) Confirm Administered Dose 5 millunits .ROUTE .STK-MED ONE Stop: 03/24/20 00:27 Last Admin: 03/24/20 01:07 Dose: 5 millunits Documented by: - Problem List & Annotations (1) Term SNOMED Code(s): 73968052 Code(s): Z34.90 - ENCNTR FOR SUPRVSN OF NORMAL , UNSP, UNSP TRIMESTER Status: Acute Current Visit: Yes (2) No care in current SNOMED Code(s): 803402111 Code(s): O09.30 - SUPRVSN OF PREG W INSUFFICIENT ANTENAT CARE, UNSP TRIMESTER Status: Acute Current Visit: Yes (3) Blood type O- SNOMED Code(s): 074354050 Code(s): Z67.41 - TYPE O BLOOD, RH NEGATIVE Status: Acute Current Visit: Yes (4) Screening for group B Streptococcus not performed SNOMED Code(s): 873598198 Code(s): NZJ1982 - Status: Acute Current Visit: Yes (5) High risk , antepartum SNOMED Code(s): 03528616 Code(s): O09.90 - SUPERVISION OF HIGH RISK , UNSP, UNSP TRIMESTER Status: Acute Current Visit: Yes (6) Anemia affecting SNOMED Code(s): 48810420 Code(s): O99.019 - ANEMIA COMPLICATING , UNSPECIFIED TRIMESTER Status: Acute Current Visit: Yes (7) Needs flu shot Status: Acute Current Visit: Yes (8) Hx of sexually transmitted disease SNOMED Code(s): 429001094 Code(s): Z86.19 - PERSONAL HISTORY OF OTHER INFECTIOUS AND PARASITIC DISEASES Status: Acute Current Visit: Yes (9) Hx of pre-eclampsia, prior , currently SNOMED Code(s): 365091762057811, 774919634323217 Code(s): O09.299 - SUPRVSN OF PREG W POOR REPRODCTV OR OBSTET HISTORY, UNSP TRI Status: Acute Current Visit: Yes (10) History of severe pre-eclampsia SNOMED Code(s): 147359973 Code(s): Z87.59 - PERSONAL HISTORY OF COMP OF PREG, CHLDBRTH AND THE PUERP Status: Acute Current Visit: Yes (11) Hx of transfusion of whole blood SNOMED Code(s): 521948933 Code(s): Z92.89 - PERSONAL HISTORY OF OTHER MEDICAL TREATMENT Status: Acute Current Visit: Yes (12) Vacuum-assisted vaginal delivery SNOMED Code(s): 43310051407931434 Code(s): Z37.9 - OUTCOME OF DELIVERY, UNSPECIFIED Status: Acute Current Visit: Yes - Problem List Review Problem List Initiated/Reviewed/Updated: Yes - My Orders Last 24 Hours: My Active Orders 03/23/20 23:24 OB Check [OM.PC] Click To Edit POC Labs [RC] ASDIRECTED 03/23/20 23:30 TRAMADOL, SCREEN ONLY, UR Routine 03/23/20 23:37 CHLAMYDIA AND GONORRHEA BY TMA Routine HBSAG SCREEN [REF] Urgent HEP C VIRUS AB [REF] Urgent RPR (SYPHILIS SERO) W/ RFLX [REF] Routine RUBELLA ANTIBODY, IGG [REF] Routine 03/23/20 23:43 CULTURE GROUP B STREP [RM] Routine CULTURE URINE [RM] Routine 03/24/20 00:30 Patient Status [ADT] Routine Communication Order [RC] ASDIRECTED Notify Provider Vital Signs OB [RC] ASDIRECTED Notify Provider [RC] PRN Up ad [place] [RC] ASDIRECTED Vital Signs [RC] PER UNIT ROUTINE Acetaminophen [TylenoL] 650 mg PO Q4H PRN Carboprost Tromethamine [Hemabate DS] 250 mcg IM ASDIRECTED PRN Lactated Ringers [Ringers, Lactated] 1,000 ml IV ASDIRECTED Lidocaine 1% [Xylocaine-MPF 1%] 30 ml INJECT ASDIRECTED PRN Methylergonovine [Methergine] 0.2 mg IM ASDIRECTED PRN Ondansetron [Zofran] 4 mg IVPUSH Q4H PRN Oxytocin/Normal Saline [Pitocin in NS 30 UNIT/500 ML] 30 unit in 500 ml IV TITRATE Sodium Chloride 0.9% [Saline Flush] 10 ml FLUSH ASDIRECTED PRN Tranexamic Acid [Cyklokapron] 1,000 mg Sodium Chloride 0.9% [Normal Saline] 100 ml IV ONETIME miSOPROStoL [Cytotec] 800 mcg RECTAL ASDIRECTED PRN Saline Lock Insert [OM.PC] Routine Resuscitation Status Routine 03/24/20 00:32 Non Stress Test [RC] PER UNIT ROUTINE 03/24/20 01:06 CHLAMYDIA AND GONORRHEA BY TMA Routine 03/24/20 05:00 Penicillin G Potassium [Pfizerpen] 2.5 millunits Sodium Chloride 0.9% [Normal Saline] 100 ml IV Q4H 03/24/20 Breakfast Regular Diet [DIET] - Plan Plan:: Assessment/Plan: Fish is a delightful 24yo NA in active labor with no care Appears near term clinically and by STAT US Blood type O- Will assess cord blood type/KLEBER and need for RhoGam GBS status unknown-- will use PCN for prophylaxis. OB labs drawn and pending. COVID negative on admit NST reactive on admit with Cat 1 tracing Anemia with hgb 10.1 on admit, PLT WNL @ 176, WBC WNL 8.2 High risk with hx PPH/blood transfusion, prior pre-E/HELLP (PIH labs reassuring on admit, and VSS/clinical pix WNL) will plan flu shot will check UDS, and cord segment after delivery. director water and waste services consult and 960 if indicated Rubella titer pending--immunization if indicated. plan to breastfeed. all questions answered. routine admit orders. [facility] Delivery: 03-24-2020 0158, VAVD over intact perineum without complication viable female, 3890g/ 8lb 9oz APGARs 9 & 9 see notes for details. [facility]
[2020-03-24] MEDS ORDERED: Diphtheria,Pertussis(Acell),Tetanus Vaccine 0.5 ML SDV IM ONE (02:49)
[2020-03-24] MEDS ORDERED: Simethicone 80 MG Tab.Chew PO PRN (02:49)
[2020-03-24] MEDS ORDERED: Zolpidem 5 MG Tab PO PRN (02:49)
[2020-03-24] MEDS ORDERED: Benzocaine/Menthol 20%-0.5% Spray 56 GM Canister TOP PRN (02:49)
[2020-03-24] MEDS: Ibuprofen 800 MG Tab PO PRN ×3 (04:24→20:08)
[2020-03-24] MEDS ORDERED: Penicillin G Potassium 2.5 MILLUNITS in Sodium Chloride 0.9% 100 ML IV SCH (05:00)
[2020-03-24] MEDS: Docusate Sodium 100 MG Cap PO PRN ×2 (12:19→20:08)
[2020-03-24] MEDS: Prenatal Multivitamin with Calcium/Folic Acid/Iron Tab PO SCH (14:25)
[2020-03-25] MEDS: Ibuprofen 800 MG Tab PO PRN (06:30)
[2020-03-25] MEDS: Docusate Sodium 100 MG Cap PO PRN (09:10)
[2020-03-25] MEDS: Prenatal Multivitamin with Calcium/Folic Acid/Iron Tab PO SCH (09:10)
--- NOTE | 2020-03-25 10:11 | PCM.DCSUM1 ---
Discharge Summary - Hospital Course Free Text/Narrative:: 24yo NA G4 now P 3105 delivered VAVD yesterday delivering a viable female @ 0158 weighing 3890g/7lb 9oz with APGARs 9 & 9 without complication. no care. PP bleeding with methergine and pitocin, resolved. hgb 10.1, dropped to 7.4, no symptoms. VSS afebrile, ambultaing, voiding well eating well. not nursing. ready for discharge PPD #1 nursery course uneventful. will give flu, Tdap, got RhoGam as baby is O+/KLEBER negative (she is o-) HPI Initial Comments: as above, presented in labor, no PNC covid neg UDS neg Brief History: as above. see admit H&P Diagnosis: Stroke: No - Discharge Data Discharge Date: 03/25/20 Discharge Disposition: Home, Self-Care 01 Condition: Good - Referral to Home Health Primary Care Physician: Britni Graham MD - Discharge Diagnosis/Problem(s) (1) Term SNOMED Code(s): 31139455 ICD Code: Z34.90 - ENCNTR FOR SUPRVSN OF NORMAL , UNSP, UNSP TRIMESTER Status: Acute Current Visit: Yes (2) No care in current SNOMED Code(s): 898543823 ICD Code: O09.30 - SUPRVSN OF PREG W INSUFFICIENT ANTENAT CARE, UNSP TRIMESTER Status: Acute Current Visit: Yes (3) Blood type O- SNOMED Code(s): 537558872 ICD Code: Z67.41 - TYPE O BLOOD, RH NEGATIVE Status: Acute Current Visit: Yes (4) Screening for group B Streptococcus not performed SNOMED Code(s): 685708603 ICD Code: [id number] - Status: Acute Current Visit: Yes (5) High risk , antepartum SNOMED Code(s): 72635731 ICD Code: O09.90 - SUPERVISION OF HIGH RISK , UNSP, UNSP TRIMESTER Status: Acute Current Visit: Yes (6) Anemia affecting SNOMED Code(s): 77764575 ICD Code: O99.019 - ANEMIA COMPLICATING , UNSPECIFIED TRIMESTER Status: Acute Current Visit: Yes (7) Needs flu shot Status: Acute Current Visit: Yes (8) Hx of sexually transmitted disease SNOMED Code(s): 906103863 ICD Code: Z86.19 - PERSONAL HISTORY OF OTHER INFECTIOUS AND PARASITIC DISEASES Status: Acute Current Visit: Yes (9) Hx of pre-eclampsia, prior , currently SNOMED Code(s): 111187415109705, 902282242319449 ICD Code: O09.299 - SUPRVSN OF PREG W POOR REPRODCTV OR OBSTET HISTORY, UNSP TRI Status: Acute Current Visit: Yes (10) History of severe pre-eclampsia SNOMED Code(s): 610635309 ICD Code: Z87.59 - PERSONAL HISTORY OF COMP OF PREG, CHLDBRTH AND THE PUERP Status: Acute Current Visit: Yes (11) Hx of transfusion of whole blood SNOMED Code(s): 953036894 ICD Code: Z92.89 - PERSONAL HISTORY OF OTHER MEDICAL TREATMENT Status: Acute Current Visit: Yes (12) Vacuum-assisted vaginal delivery SNOMED Code(s): 74303676650287249 ICD Code: Z37.9 - OUTCOME OF DELIVERY, UNSPECIFIED Status: Acute Current Visit: Yes - Patient Summary/Data Consults: Consultations 03/24/20 02:49 Consult to Case Management/Photonics Technician [CONS] Routine Consult to Pear Picker [CONS] Routine - Patient Instructions Diet: Usual Diet as Tolerated Activity: As Tolerated Notify Provider of: Fever, Increased Pain, Swelling and Redness, Drainage - Discharge Plan *PRESCRIPTION DRUG MONITORING PROGRAM REVIEWED*: Not Applicable *COPY OF PRESCRIPTION DRUG MONITORING REPORT IN PATIENT CHARLA: Not Applicable Home Medications: Home Meds Vit with Ca/FA/Iron [ Plus Iron] 1 tab PO DAILY 03/23/20 [History] Referrals: Britni Graham MD [Primary Care Provider] - - Discharge Summary/Plan Comment DC Time >30 min.: No Discharge Summary/Plan Comment: follow up 6 weeks PP check iron BID PNV stool softener prn ibuprofen prn - Patient Data Vitals - Most Recent: Last Vital Signs Temp 98.1 F 03/24/20 20:00 Pulse 89 03/24/20 20:00 Resp 03/24/20 20:00 BP 112/59 L 03/24/20 20:00 Pulse Ox 99 03/24/20 20:00 Weight - Most Recent: 136 lb Lab Results - Last 24 hrs: Laboratory Results - last 24 hr 03/23/20 03/24/20 03/25/20 Range/Units 23:37 03:09 06:14 WBC 8.2 (5.0-10.0) 10^3/uL RBC 3.21 L (4.2-5.4) 10^6/uL Hgb 7.4 L D (12.0-16.0) g/dL Hct 24.3 L (37.0-47.0) % MCV 75.7 L (80-100) fL MCH 23.1 L (27.0-34.0) pg MCHC 30.5 L (33.0-35.0) g/dL Plt Count 165 (150-450) 10^3/uL Rubella Immune Status Immune Rubella IgG Antibody Positive IU/mL Blood Type O NEGATIVE Gel Antibody Screen Negative Rhogam Indicated Yes, baby rh pos H OMI Results - Last 24 hrs: Microbiology 03/23/20 23:43 Urine Culture - Preliminary Urine, Clean Catch NO GROWTH AFTER 1 DAY Med Orders - Current: Current Medications Acetaminophen (Tylenol) 650 mg PO Q4H PRN PRN Reason: Pain (Mild 1-3) and fever Benzocaine/Menthol (Dermoplast Pain Relief [place]) 0 gm TOP Q4H PRN PRN Reason: Perineal comfort measures Carboprost Tromethamine (Hemabate Ds) 250 mcg IM ASDIRECTED PRN PRN Reason: HEMORRHAGE Docusate Sodium (Colace) 100 mg PO BID PRN PRN Reason: Constipation Last Admin: 03/25/20 09:10 Dose: 100 mg Documented by: Lactated Ringer's (Ringers, Lactated) 1,000 mls @ 125 mls/hr IV ASDIRECTED IRENA Last Admin: 03/24/20 00:45 Dose: 125 mls/hr Documented by: Tranexamic Acid 1,000 mg/ (Sodium Chloride) 110 mls @ 660 mls/hr IV ONETIME PRN PRN Reason: Bleeding Oxytocin/Sodium Chloride (Pitocin In Ns 30 Unit/500 Ml) 30 unit in 500 mls @ 2 mls/hr IV TITRATE IRENA; Protocol Last Titration: 03/24/20 07:40 Dose: 0 munits/min, 0 mls/hr Documented by: Ibuprofen (Motrin) 800 mg PO Q8H PRN PRN Reason: Mild Pain or Fever Last Admin: 03/25/20 06:30 Dose: 800 mg Documented by: Lidocaine HCl (Xylocaine-Mpf 1%) 30 ml INJECT ASDIRECTED PRN PRN Reason: Perineal Repair Methylergonovine Maleate (Methergine) 0.2 mg IM ASDIRECTED PRN PRN Reason: Hemorrhage Last Admin: 03/24/20 02:23 Dose: 0.2 mg Documented by: Misoprostol (Cytotec) 800 mcg RECTAL ASDIRECTED PRN PRN Reason: Hemorrhage Ondansetron HCl (Zofran) 4 mg IVPUSH Q4H PRN PRN Reason: Nausea/Vomiting Prenat Multivit/[place]/Iron/Folic Ac ( Plus Iron) 1 each PO DAILY IRENA Last Admin: 03/25/20 09:10 Dose: 1 each Documented by: Simethicone (Simethicone) 80 mg PO Q4H PRN PRN Reason: Gas Sodium Chloride (Saline Flush) 10 ml FLUSH ASDIRECTED PRN PRN Reason: Keep Vein Open Witch [place] (Medi-Pads) 1 each TOP Q4HR PRN PRN Reason: Perineal Comfort Measure Zolpidem Tartrate (Ambien) 5 mg PO BEDTIME PRN PRN Reason: Insomnia Discontinued Medications Diphtheria/Tetanus/Acell Pertussis (Adacel) 0.5 ml IM .ONCE ONE Stop: 03/24/20 02:50 Penicillin G Potassium 5 (millunits/ Sodium Chloride) 100 mls @ 200 mls/hr IV ONETIME ONE Stop: 03/24/20 01:29 Last Admin: 03/24/20 00:45 Dose: 200 mls/hr Documented by: Penicillin G Potassium 2.5 (millunits/ Sodium Chloride) 100 mls @ 200 mls/hr IV Q4H [facility] Influenza Virus Vaccine (Flucelvax Quad [id number] Syr) 60 mcg IM .ONCE ONE Stop: 03/24/20 01:29 Penicillin G Potassium (Pfizerpen) Confirm Administered Dose 5 millunits .ROUTE .STK-MED ONE Stop: 03/24/20 00:27 Last Admin: 03/24/20 01:07 Dose: 5 millunits Documented by:
[2020-03-25 10:49] VITALS: BP 112/64; PULSE 90
[2020-03-25] MEDS ORDERED: FLU Vacc QS2020-21 36MOS UP/PF 60 MCG/0.5 ML Syringe IM ONE (11:30)
[2020-03-27 17:47] LABS: C.TRACHOMATIS BY TMA Negative (Negative); N.GONORRHOEAE BY TMA Negative (Negative)
[2020-03-27 17:47] LABS: C.TRACHOMATIS BY TMA Negative (Negative); N.GONORRHOEAE BY TMA Negative (Negative)
== END 2020-03-25 14:30 | disposition home or self-care (01) | DRG 807 ==
LOC: DL.OBCHECK 23:26 → DL.OB 03-24 00:27 → OBSVTOIN 03-24 01:58 → DL.MS 03-24 10:36
PROVIDERS: ADMIT Family Medicine; ATTEND Family Medicine
PROC: 10D07Z6 Extraction of Products of Conception, Vacuum, Via Natural or Artificial Opening (ICD-10-PCS; principal; 2020-03-24)
PROC: 3E02340 Introduction of Influenza Vaccine into Muscle, Percutaneous Approach (ICD-10-PCS; 2020-03-24)
PROC: 10907ZC Drainage of Amniotic Fluid, Therapeutic from Products of Conception, Via Natural or Artificial Opening (ICD-10-PCS; 2020-03-24)
DX: O99.02 Anemia complicating childbirth (principal); Z37.0 Single live birth; D64.9 Anemia, unspecified; Z20.828 Contact with and (suspected) exposure to other viral communicable diseases; O26.893 Other specified pregnancy related conditions, third trimester; O77.0 Labor and delivery complicated by meconium in amniotic fluid; Z87.59 Personal history of other complications of pregnancy, childbirth and the puerperium; Z3A.38 38 weeks gestation of pregnancy; Z67.41 Type O blood, Rh negative; Z23 Encounter for immunization
CPT/HCPCS: 36415; 59025; 59409; 76815; 80305-QW; 80307; 81001; 82565; 82570; 83615; 84156; 84450; 84460; 84520; 84550; 85027; 85461; 86592; 86762; 86803; 86850; 86900; 86901; 87077; 87081; 87086; 87186; 87210; 87340; 87389; 87491; 87591; 90471; 90686; 90715; A9270-GY; G0008; J2210; J2540; J2590; J2790; J7050; J7120; U0002

== ENCOUNTER 2021-02-08 10:00 | Inpatient (IN) | payer MEDICAID ==
[2021-02-08] MEDS: Lactated Ringers 1,000 ML IV SCH ×2 (11:00→15:20)
--- NOTE | 2021-02-08 11:00 | US ---
PROCEDURE INFORMATION: Exam: US , Limited Exam date and time: 02/08/2021 10:28 AM Age: 25 years old Clinical indication: Lmp or gestational age (in weeks): ? ; Antepartum complications; Other: No care, dates, placenta location; ; Additional info: No care--dating, placental location TECHNIQUE: Imaging protocol: Real-time ultrasound of the maternal uterus with image documentation. Exam focused on the clinical indication. COMPARISON: No relevant prior studies available. FINDINGS: Gestation: Single living intrauterine gestation. Fetus is in cephalic presentation with a longitudinal lie. The placenta is located anteriorly. No previa identified. Estimated ultrasound age is 36 weeks and 3 days. Estimated weight is 3154 g. Heart rate was not obtained sonographically but was demonstrated at 130 bpm on monitor. Amniotic fluid index: Amniotic fluid index 8.9 cm. IMPRESSION: Single living intrauterine gestation with estimated ultrasound age of 36 weeks and 3 days. Anterior location of the placenta without evidence of previa.
[2021-02-08] MEDS ORDERED: Lidocaine 1% 30 ML SDV ONE (11:26)
[2021-02-08] MEDS: Oxytocin/Normal Saline 30 UNIT/500 ML BAG IV SCH ×2 (11:35→15:17)
[2021-02-08 11:58] LABS: AMPHETAMINES,URINE NEGATIVE (NEGATIVE); BARBITURATES,URINE NEGATIVE (NEGATIVE); BENZODIAZEPINE,URINE NEGATIVE (NEGATIVE); MDMA (ECSTASY), URINE NEGATIVE (NEGATIVE); METHADONE,URINE NEGATIVE (NEGATIVE); METHAMPHETAMINES,URINE POSITIVE (NEGATIVE); OPIATES,URINE NEGATIVE (NEGATIVE); OXYCODONE,URINE NEGATIVE (NEGATIVE); PHENCYCLIDINE,URINE NEGATIVE (NEGATIVE); TCA,URINE NEGATIVE (NEGATIVE)
[2021-02-08] MEDS ORDERED: ceFAZolin 1 GM in Sodium Chloride 0.9% 50 ML IV ONE (11:59)
[2021-02-08] MEDS ORDERED: ceFAZolin 1 GM Vial ONE (12:03)
[2021-02-08] MEDS ORDERED: Carboprost Tromethamine 250 MCG/1 ML Amp IM PRN (12:17)
[2021-02-08] MEDS ORDERED: Oxytocin 10 Units/1 ML SDV IM PRN (12:17)
[2021-02-08] MEDS ORDERED: Simethicone 80 MG Tab.Chew PO PRN (12:17)
[2021-02-08] MEDS ORDERED: Misoprostol 400 MCG (4 X 100 MCG TAB) RECTAL PRN (12:17)
[2021-02-08] MEDS ORDERED: Tranexamic Acid 1,000 MG in Sodium Chloride 0.9% 100 ML IV PRN (12:17)
[2021-02-08] MEDS ORDERED: Sodium Chloride 0.9% 10 ML Syringe FLUSH PRN (12:17)
[2021-02-08] MEDS ORDERED: Benzocaine/Menthol 20%-0.5% Spray 78 GM Cannister TOP PRN (12:17)
--- NOTE | 2021-02-08 13:12 | PCM.HP ---
H&P History of Present Illness - General Date of Service: 02/08/21 Source of Information: Patient, EMS, Old Records History Limitations: Reports: Other (under influence of Meth) - History of Present Illness Initial Comments - Free Text/Narative: Patient is a presumed 25yo G4, P2-1-0-4 female who presents to labor and delivery today in labor with no care. Baby active. Patient reports possible leakage of fluid overnight with lots of discharge since that time. She reports increasing intensity of contractions in her lower abdomen and pelvis. Denies vaginal bleeding. Denies s/sx of Pre-eclampsia. Patient does endorses last use of Methamphetamine last night. She also is taking gummy vitamins only. No allergies. Onset of Symptoms: Reports: Unknown/Unsure Duration of Symptoms: Reports: Getting Worse Labor Pains Pain Score (Numeric/FACES): 10 - Related Data Allergies/Adverse Reactions: Allergies Allergy/AdvReac Type Severity Reaction Status Date / Time No Known Allergies Allergy Verified 03/23/20 23:45 Home Medications: Home Meds Vit with Ca/FA/Iron [ Plus Iron] 1 tab PO DAILY 03/23/20 [History] Past Medical History HEENT History: Reports: None Cardiovascular History: Reports: None Respiratory History: Reports: Asthma Gastrointestinal History: Reports: GERD Other Gastrointestinal History: heartburn with Genitourinary History: Reports: STD 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 Fourth NPC VAVD 03/24/20 girl 9&9 with PPH, [id number]. Musculoskeletal History: Reports: None Other Musculoskeletal History: left forearm Neurological History: Reports: None Psychiatric History: Reports: Depression Endocrine/Metabolic History: Reports: None Other Endocrine/Metabolic History: TSH 0.01, free T4 1.4 at 16w3d Hematologic History: Reports: Anemia, Blood Transfusion(s) Immunologic History: Reports: None Oncologic (Cancer) History: Reports: None Dermatologic History: Reports: None - Infectious Disease History Infectious Disease History: Reports: None - Past Surgical History Head Surgeries/Procedures: Reports: None HEENT Surgical History: Reports: None Cardiovascular Surgical History: Reports: None Respiratory Surgical History: Reports: None GI Surgical History: Reports: Appendectomy Other GI Surgeries/Procedures: at 14yrs Female Surgical History: Reports: None Social & Family History - Family History Family Medical History: No Pertinent Family History Other OBGYN Family History: mom with SAB X 2 Neurological: Reports: Seizure Endocrine/Metabolic: Reports: Diabetes, type II - Caffeine Use Caffeine Use: Reports: Soda - Living Situation & Occupation Living situation: Reports: Single, with Family H&P Review of Systems - Review of Systems: Review Of Systems: Unable To Obtain (due to pain) Reason Not Obtained: due to pain Exam - Exam Exam: See Below - Vital Signs Vital Signs: Last Vital Signs Temp 98.3 F 02/08/21 10:16 Pulse 124 H 02/08/21 10:16 Resp 20 02/08/21 10:16 BP 158/85 H 02/08/21 10:16 Pulse Ox Weight: 127 lb - Exam General: Alert, Cooperative Lungs: Clear to Auscultation, Normal Respiratory Effort Cardiovascular: Regular Rhythm, Tachycardia GI/Abdominal Exam: Other (gravid uterus) (Female) Exam: Vaginal Discharge, Other (Cervical exam: complete, bulging bag 0 station) - Patient Data Lab Results Last 24 hrs: Laboratory Results - last 24 hr 02/08/21 02/08/21 02/08/21 Range/Units 10:20 10:20 10:20 WBC 10.8 H (5.0-10.0) 10^3/uL RBC 3.33 L (4.2-5.4) 10^6/uL Hgb 6.7 L* (12.0-16.0) g/dL Hct 24.0 L (37.0-47.0) % MCV 72.1 L D (80-100) fL MCH 20.1 L (27.0-34.0) pg MCHC 27.9 L (33.0-35.0) g/dL Plt Count 124 L (150-450) 10^3/uL BUN (7-18) mg/dL Creatinine (0.55-1.02) mg/dL Est Cr Clr Drug Dosing mL/min Estimated GFR (MDRD) Uric Acid (2.6-6.0) mg/dL AST (15-37) U/L ALT (14-59) U/L Lactate Dehydrogenase (81-234) U/L Urine Color (YELLOW) Urine Appearance (CLEAR) Urine pH (5.0-9.0) Ur Specific [place] (1.005-1.030) Urine Protein (NEGATIVE) Urine Glucose (UA) (NEGATIVE) Urine Ketones (NEGATIVE) Urine Occult Blood (NEGATIVE) Urine Nitrite (NEGATIVE) Urine Bilirubin (NEGATIVE) Urine Urobilinogen (0.2-1.0) mg/dL Ur Leukocyte Esterase (NEGATIVE) Urine RBC (0-5) /HPF Urine WBC (0-5/HPF) /HPF Ur Epithelial Cells (NOT SEEN) /HPF Urine Bacteria (0-FEW/HPF) /HPF Urine Mucus (NOT SEEN) /LPF Ur Random Creatinine (No establ ref range) mg/dL U Random Total Protein (0.0-11.9) mg/dL Protein/Creatinin Ratio (<150.0) mg/g Membrane Rupture (NEG) Urine Opiates Screen (NEGATIVE) Ur Oxycodone Screen (NEGATIVE) Urine Methadone Screen (NEGATIVE) Ur Barbiturates Screen (NEGATIVE) U Tricyclic Antidepress (NEGATIVE) Ur Phencyclidine Scrn (NEGATIVE) Ur Amphetamine Screen (NEGATIVE) U Methamphetamines Scrn (NEGATIVE) Urine MDMA Screen (NEGATIVE) U Benzodiazepines Scrn (NEGATIVE) Urine Cocaine Screen (NEGATIVE) U Marijuana (THC) Screen (NEGATIVE) HIV-1 Antibody Non-reactive (NONREACTIVE) HIV-2 Antibody Non-reactive (NONREACTIVE) HIV P24 Antigen Non-reactive (NONREACTIVE) SARS-CoV-2 RNA (THA) (NEGATIVE) Blood Type O NEGATIVE Gel Antibody Screen Negative Crossmatch See Detail 02/08/21 02/08/21 02/08/21 Range/Units 10:20 10:21 10:24 WBC (5.0-10.0) 10^3/uL RBC (4.2-5.4) 10^6/uL Hgb (12.0-16.0) g/dL Hct (37.0-47.0) % MCV (80-100) fL MCH (27.0-34.0) pg MCHC (33.0-35.0) g/dL Plt Count (150-450) 10^3/uL BUN 10 (7-18) mg/dL Creatinine 0.71 (0.55-1.02) mg/dL Est Cr Clr Drug Dosing 97.47 mL/min Estimated GFR (MDRD) > 60 Uric Acid 7.3 H (2.6-6.0) mg/dL AST 26 (15-37) U/L ALT 21 (14-59) U/L Lactate Dehydrogenase 269 H (81-234) U/L Urine Color Yellow (YELLOW) Urine Appearance Clear (CLEAR) Urine pH 7.0 (5.0-9.0) Ur Specific [place] 1.025 (1.005-1.030) Urine Protein >=300 H (NEGATIVE) Urine Glucose (UA) Negative (NEGATIVE) Urine Ketones Negative (NEGATIVE) Urine Occult Blood Trace-intact H (NEGATIVE) Urine Nitrite Negative (NEGATIVE) Urine Bilirubin Negative (NEGATIVE) Urine Urobilinogen 1.0 (0.2-1.0) mg/dL Ur Leukocyte Esterase Negative (NEGATIVE) Urine RBC 5-10 H (0-5) /HPF Urine WBC 0-5 (0-5/HPF) /HPF Ur Epithelial Cells Few (NOT SEEN) /HPF Urine Bacteria Few (0-FEW/HPF) /HPF Urine Mucus Rare (NOT SEEN) /LPF Ur Random Creatinine 123.79 (No establ ref range) mg/dL U Random Total Protein 263.3 H (0.0-11.9) mg/dL Protein/Creatinin Ratio 2127.0 H (<150.0) mg/g Membrane Rupture (NEG) Urine Opiates Screen (NEGATIVE) Ur Oxycodone Screen (NEGATIVE) Urine Methadone Screen (NEGATIVE) Ur Barbiturates Screen (NEGATIVE) U Tricyclic Antidepress (NEGATIVE) Ur Phencyclidine Scrn (NEGATIVE) Ur Amphetamine Screen (NEGATIVE) U Methamphetamines Scrn (NEGATIVE) Urine MDMA Screen (NEGATIVE) U Benzodiazepines Scrn (NEGATIVE) Urine Cocaine Screen (NEGATIVE) U Marijuana (THC) Screen (NEGATIVE) HIV-1 Antibody (NONREACTIVE) HIV-2 Antibody (NONREACTIVE) HIV P24 Antigen (NONREACTIVE) SARS-CoV-2 RNA (THA) (NEGATIVE) Blood Type Gel Antibody Screen Crossmatch 02/08/21 02/08/21 02/08/21 Range/Units 10:24 10:25 11:20 WBC (5.0-10.0) 10^3/uL RBC (4.2-5.4) 10^6/uL Hgb (12.0-16.0) g/dL Hct (37.0-47.0) % MCV (80-100) fL MCH (27.0-34.0) pg MCHC (33.0-35.0) g/dL Plt Count (150-450) 10^3/uL BUN (7-18) mg/dL Creatinine (0.55-1.02) mg/dL Est Cr Clr Drug Dosing mL/min Estimated GFR (MDRD) Uric Acid (2.6-6.0) mg/dL AST (15-37) U/L ALT (14-59) U/L Lactate Dehydrogenase (81-234) U/L Urine Color (YELLOW) Urine Appearance (CLEAR) Urine pH (5.0-9.0) Ur Specific [place] (1.005-1.030) Urine Protein (NEGATIVE) Urine Glucose (UA) (NEGATIVE) Urine Ketones (NEGATIVE) Urine Occult Blood (NEGATIVE) Urine Nitrite (NEGATIVE) Urine Bilirubin (NEGATIVE) Urine Urobilinogen (0.2-1.0) mg/dL Ur Leukocyte Esterase (NEGATIVE) Urine RBC (0-5) /HPF Urine WBC (0-5/HPF) /HPF Ur Epithelial Cells (NOT SEEN) /HPF Urine Bacteria (0-FEW/HPF) /HPF Urine Mucus (NOT SEEN) /LPF Ur Random Creatinine (No establ ref range) mg/dL U Random Total Protein (0.0-11.9) mg/dL Protein/Creatinin Ratio (<150.0) mg/g Membrane Rupture Positive (NEG) Urine Opiates Screen Negative (NEGATIVE) Ur Oxycodone Screen Negative (NEGATIVE) Urine Methadone Screen Negative (NEGATIVE) Ur Barbiturates Screen Negative (NEGATIVE) U Tricyclic Antidepress Negative (NEGATIVE) Ur Phencyclidine Scrn Negative (NEGATIVE) Ur Amphetamine Screen Negative (NEGATIVE) U Methamphetamines Scrn Positive H (NEGATIVE) Urine MDMA Screen Negative (NEGATIVE) U Benzodiazepines Scrn Negative (NEGATIVE) Urine Cocaine Screen Negative (NEGATIVE) U Marijuana (THC) Screen Negative (NEGATIVE) HIV-1 Antibody (NONREACTIVE) HIV-2 Antibody (NONREACTIVE) HIV P24 Antigen (NONREACTIVE) SARS-CoV-2 RNA (THA) Negative (NEGATIVE) Blood Type Gel Antibody Screen Crossmatch Result Diagrams: 02/08/21 10:20 02/08/21 10:20 Scar Results Last 24 hrs: Microbiology 02/08/21 11:20 Wet Prep - Final Vagina - Problem List (1) (normal spontaneous vaginal delivery) SNOMED Code(s): 89823678, 011991936 ICD Code: O80 - ENCOUNTER FOR FULL-TERM UNCOMPLICATED DELIVERY Status: Acute Current Visit: Yes (2) No care in current SNOMED Code(s): 310395571 ICD Code: O09.30 - SUPRVSN OF PREG W INSUFFICIENT ANTENAT CARE, UNSP TRIMESTER Status: Acute Current Visit: Yes (3) Methamphetamine abuse SNOMED Code(s): 101970988 ICD Code: F15.10 - OTHER STIMULANT ABUSE, UNCOMPLICATED Status: Acute Current Visit: Yes (4) hemorrhage SNOMED Code(s): 64533034 ICD Code: O72.1 - OTHER IMMEDIATE HEMORRHAGE Status: Acute C urrent Visit: Yes (5) Pre-eclampsia SNOMED Code(s): 484762443 ICD Code: O14.90 - UNSPECIFIED PRE-ECLAMPSIA, UNSPECIFIED TRIMESTER Status: Acute Current Visit: Yes Problem List Initiated/Reviewed/Updated: Yes Orders Last 24hrs: Active Orders 24 hr Category Date Time Status Heart Rate [RC] CONTINUOUS Care 02/08/21 10:12 Active Notify Provider Vital Signs OB [RC] ASDIRECTED Care 02/08/21 12:18 Active OB Check [OM.PC] Click To Edit Care 02/08/21 10:12 Ordered Up ad [place] [RC] ASDIRECTED Care 02/08/21 12:18 Active Vital Signs [RC] PFP Care 02/08/21 12:17 Active Regular Diet [DIET] Diet 02/08/21 Breakfast Active Regular Diet [DIET] Diet 02/08/21 Dinner Active Regular Diet [DIET] Diet 02/08/21 Lunch Active CBC W/O DIFF,HEMOGRAM [HEME] Routine Lab 02/09/21 07:00 Ordered CBC W/O DIFF,HEMOGRAM [HEME] Timed Lab 02/08/21 18:00 Ordered CHLAMYDIA AND GONORRHEA BY TMA Routine Lab 02/08/21 10:24 Received CULTURE GROUP B STREP [RM] Routine Lab 02/08/21 10:24 Received HBSAG SCREEN [REF] Routine Lab 02/08/21 10:20 Received HEP C VIRUS AB [REF] Routine Lab 02/08/21 10:20 Received RED BLOOD CELLS LP [BBK] Routine Lab 02/08/21 10:20 Results RPR (SYPHILIS SERO) W/ RFLX [REF] Routine Lab 02/08/21 10:20 Received RUBELLA ANTIBODY, IGG [REF] Routine Lab 02/08/21 10:20 Received TRAMADOL, SCREEN ONLY, UR Routine Lab 02/08/21 10:24 Received TYPE AND SCREEN [BBK] Routine Lab 02/08/21 10:20 Results WEAK D TEST [BBK] Routine Lab 02/08/21 10:20 Results Acetaminophen [TylenoL] Med 02/08/21 12:17 Active 650 mg PO Q6H PRN Benzocaine/Menthol [Dermoplast Pain Relief 20%-0.5% Med 02/08/21 12:17 Active [place]] See Dose Instructions TOP Q4H PRN Carboprost Tromethamine [Hemabate DS] Med 02/08/21 12:17 Active 250 mcg IM ASDIRECTED PRN Docusate Sodium [Colace] Med 02/08/21 12:17 Active 100 mg PO BID PRN Ibuprofen [Motrin] Med 02/08/21 12:17 Active 800 mg PO Q8H PRN Oxytocin [Pitocin] Med 02/08/21 12:17 Active 10 unit IM ONETIME PRN Vit with Ca/FA/Iron [ Plus Iron] Med 02/08/21 12:30 Active 1 each PO DAILY Simethicone Med 02/08/21 12:17 Active 80 mg PO Q4H PRN Sodium Chloride 0.9% [Saline Flush] Med 02/08/21 12:17 Active 10 ml FLUSH ASDIRECTED PRN Tranexamic Acid [Cyklokapron] 1,000 mg Med 02/08/21 12:17 Active Sodium Chloride 0.9% [Normal Saline] 100 ml IV ONETIME miSOPROStoL [Cytotec] Med 02/08/21 12:17 Active 800 mcg RECTAL ONETIME PRN Assess Lochia [WOMSER] Per Unit Routine Oth 02/08/21 12:18 Ordered Assess Uterine Involution [WOMSER] Per Unit Routine Oth 02/08/21 12:18 Ordered Breast Pump [WOMSER] Per Unit Routine Ot 02/08/21 12:18 Ordered Ice Therapy [OM.PC] Per Unit Routine Oth 02/08/21 12:18 Ordered Perineal Care [OM.PC] Per Unit Routine Ot 02/08/21 12:18 Ordered Saline Lock Insert [OM.PC] Urgent Oth 02/08/21 12:18 Ordered Sitz Bath [OM.PC] Per Unit Routine Ot 02/08/21 12:18 Ordered Transfuse Red Blood Cells [COMM] Stat Ot 02/08/21 10:49 Ordered Resuscitation Status Routine Resus Stat 02/08/21 12:17 Ordered Medication Orders Acetaminophen (Acetaminophen 325 Mg Tab) 650 mg PO Q6H PRN PRN Reason: Pain/Fever Benzocaine/Menthol (Benzocaine/Menthol 20%-0.5% [place] 78 Gm Cannister) 0 gm TOP Q4H PRN PRN Reason: Perineal comfort measures Carboprost Tromethamine (Carboprost Tromethamine 250 Mcg/1 Ml Amp) 250 mcg IM ASDIRECTED PRN PRN Reason: Excessive vaginal bleeding Docusate Sodium (Docusate Sodium 100 Mg Cap) 100 mg PO BID PRN PRN Reason: Constipation Tranexamic Acid 1,000 mg/ (Sodium Chloride) 110 mls @ 660 mls/hr IV ONETIME PRN PRN Reason: Bleeding Ibuprofen (Ibuprofen 800 Mg Tab) 800 mg PO Q8H PRN PRN Reason: Cramping Misoprostol (Misoprostol 400 Mcg (4 X 100 Mcg Tab)) 800 mcg RECTAL ONETIME PRN PRN Reason: Hemorrhage Oxytocin (Oxytocin 10 Units/1 Ml Sdv) 10 unit IM ONETIME PRN PRN Reason: Bleeding Prenat Multivit/[place]/Iron/Folic Ac ( Multivitamin With Calcium/Folic Acid/Iron Tab) 1 each PO DAILY IRENA Simethicone (Simethicone 80 Mg Tab.Chew) 80 mg PO Q4H PRN PRN Reason: Gas Sodium Chloride (Sodium Chloride 0.9% 10 Ml Syringe) 10 ml FLUSH ASDIRECTED PRN PRN Reason: Keep Vein Open Assessment/Plan Comment:: Will continue with delivery. Please see delivery note and procedure note from Dr. Prescott and Dr. Mijares for further details. -Nina Castro MD PGY-2
[2021-02-08] MEDS ORDERED: Magnesium Sulfate/Water 2 GM in Premix Bag 1 BAG IV SCH (14:00)
[2021-02-08] MEDS: Prenatal Multivitamin with Calcium/Folic Acid/Iron Tab PO SCH (14:12)
[2021-02-08] MEDS ORDERED: Magnesium Sulfate/Water 4 GM in Premix Bag 1 BAG IV ONE (15:10)
--- NOTE | 2021-02-08 15:13 | OR ---
DATE: 02/08/2021 REASON FOR CONSULTATION: hemorrhage with suspicion for retained products of conception. REQUESTING PROVIDER: Karina Prescott MD. BRIEF HISTORY: A 25-year-old patient delivered shortly earlier via spontaneous vaginal delivery. She was having significant brisk bleeding, where Dr. Prescott had initiated uterotonic medications as early as delivery of the baby's head and even prior to the placenta being completely delivered. Due to the severity of the bleeding, manual extraction was performed of the placenta. It was known to be in anterior location and Dr. Prescott inspected the placenta and it appeared to be intact. However, the patient continued to hemorrhage. She did do a manual exploration and could feel a little bit of retained tissue, so I was consulted for further opinion, evaluation, and potential curettage of the uterus. CONSENT: Verbal consent obtained for uterine curettage due to the emergent nature of the situation. Discussed risk of infection and plan for prophylactic antibiotics. Risk of injury to vagina, cervix, uterus. Risk of future scaring. Risk of perforation and therefore injury to other adjacent structures such as the bladder and intestines. Questions answered and she agreed to proceed in order to get her bleeding to stop. DETAILS: Upon my arrival to the room, the patient is lying on the hospital bed. Overall comfortable in dorsal lithotomy position with brisk vaginal bleeding that would slow with bimanual massage. I inspected the placenta and agreed that overall it did appear intact. Manual exploration was performed and I did feel fluffy texture of placenta on the anterior wall of the uterus. Speculum were called for and cervix well visualized verifying no vaginal or cervical lacerations. A large sharp curette tool was used for several passes of the uterus and evacuation of clots and some placental debris. Manual exploration revealed some additional tissue in the left cornu. Therefore, sharp curetting was performed again, paying special attention to this location, but also making sure to curette in a 360 degree fashion ensuring there was also no returned membranes. A small amount of placental tissue returned from the cornu. Manual exploration performed again with the hand with gauze over it and then with plain glove, and patient was doing well thereafter maintaining uterine tone and bleeding slowed and controlled significantly. EBL: My portion of the procedure, I estimated at least a [address] Prescott had estimated over a 1000 mL prior to that. . COMPLICATIONS: None. She tolerated the procedure quite well. She was still under the influence of some street drugs with alleged use last night and did not require any additional medications for this procedure as she was able to tolerate it very well. FINDINGS: Retained placental fragments estimated in total probably 45 mL of tissue, difficult to estimate with the amount of blood and clot also present. DISPOSITION: The patient maintained in the delivery room at this time. Dr. Prescott will continue to monitor her for blood loss quite closely, and if we need to perform another evaluation, I would anticipate at that time going to the operating room with ultrasound guidance for support, although at this time her uterus feels safely evacuated, cramping down, and bleeding is now controlled. Appropriate blood products have been ordered and will be administered under Dr. Prescott's care. She has also already been started on postprocedure and post-manual exploration antibiotic prophylaxis for infection. [facility] /[id number] [facility]
[2021-02-08] MEDS ORDERED: MAGNESIUM SULFATE IV SCH (15:15)
[2021-02-08] MEDS ORDERED: DEXTROSE IV SCH (15:15)
[2021-02-08] MEDS: Acetaminophen 325 MG Tab PO PRN ×2 (15:18→23:31)
[2021-02-08] MEDS: Ibuprofen 800 MG Tab PO PRN ×2 (15:18→23:32)
[2021-02-08] MEDS: Magnesium Sulfate/Water 20 GM/500 ML BAG IV SCH (15:45)
[2021-02-09] MEDS: Magnesium Sulfate/Water 20 GM/500 ML BAG IV SCH (01:25)
[2021-02-09] MEDS: Acetaminophen 325 MG Tab PO PRN ×2 (09:10→20:31)
[2021-02-09] MEDS: Ferrous Sulfate 325 MG Tab PO SCH ×2 (09:10→20:31)
[2021-02-09] MEDS: Ibuprofen 800 MG Tab PO PRN ×2 (09:10→20:31)
[2021-02-09] MEDS: Prenatal Multivitamin with Calcium/Folic Acid/Iron Tab PO SCH (09:10)
[2021-02-09 12:47] LABS: C.TRACHOMATIS BY TMA Positive (Negative); N.GONORRHOEAE BY TMA Negative (Negative)
[2021-02-09] MEDS: Docusate Sodium 100 MG Cap PO PRN (20:30)
[2021-02-09] MEDS ORDERED: Azithromycin 250 MG Tab PO ONE (21:18)
--- NOTE | 2021-02-10 07:57 | PCM.PNPP ---
- General Info Date of Service: 02/10/21 Admission Dx/Problem (Free Text): Patient is PPD #2 s/p with retained membranes s/p manual extraction and subsequent procedural curettage, no care, methamphetamine use, PPH with EBL 1500mL, Pre-eclampsia requiring treatment with magnesium, acute blood loss anemia s/p 3UpRBC and 1U plasma. Patient has remained in bed through hospital course. Kirkpatrick is in place. Patient has been intermittently awake and active, able to eat. Patient was up overnight but upon rounds this morning was sleeping and minimally arousable. Urine output has been adequate. Per nursing report patient has been tolerating PO intake and was more active overnight compared to during the day. Functional Status: Reports: Pain Controlled, Tolerating Diet. Denies: Ambulating, Urinating (kirkpatrick in place) - Review of Systems Systems Review Comment:: Unable to assess. - General Info Date of Service: 02/10/21 - Patient Data Vital Signs - Most Recent: Last Vital Signs Temp 98.6 F 02/09/21 20:59 Pulse 107 H 02/09/21 20:59 Resp 18 02/09/21 20:59 BP 132/67 02/09/21 20:59 Pulse Ox 99 02/09/21 20:59 Weight - Most Recent: 127 lb I&O - Last 24 Hours: Intake & Output 02/09/21 02/10/21 02/10/21 22:59 06:59 14:59 Intake Total 341 Output Total 1825 1300 Balance -1484 -1300 Lab Results - Last 24 Hours: Laboratory Results - last 24 hr 02/08/21 02/08/21 02/08/21 Range/Units 10:20 10:20 10:24 WBC (5.0-10.0) 10^3/uL RBC (4.2-5.4) 10^6/uL Hgb (12.0-16.0) g/dL Hct (37.0-47.0) % MCV (80-100) fL MCH (27.0-34.0) pg MCHC (33.0-35.0) g/dL Plt Count (150-450) 10^3/uL Magnesium (1.8-2.4) mg/dL Chlamydia/GC Source Genital C.trachomatis RNA (TMA) Positive H (Negative) N.gonorrhoeae RNA (TMA) Negative (Negative) Rubella Immune Status Immune Rubella IgG Antibody Positive IU/mL Blood Type O NEGATIVE Gel Antibody Screen Negative Rhogam Indicated Yes, baby rh pos H Crossmatch See Detail 02/09/21 02/09/21 02/10/21 Range/Units 13:41 21:15 06:07 WBC 9.6 10.0 (5.0-10.0) 10^3/uL RBC 2.88 L 2.87 L (4.2-5.4) 10^6/uL Hgb 7.5 L 7.3 L (12.0-16.0) g/dL Hct 23.5 L 23.7 L (37.0-47.0) % MCV 81.6 D 82.6 (80-100) fL MCH 26.0 L 25.4 L (27.0-34.0) pg MCHC 31.9 L 30.8 L (33.0-35.0) g/dL Plt Count 106 L 114 L (150-450) 10^3/uL Magnesium 5.9 H (1.8-2.4) mg/dL Chlamydia/GC Source C.trachomatis RNA (TMA) (Negative) N.gonorrhoeae RNA (TMA) (Negative) Rubella Immune Status Rubella IgG Antibody IU/mL Blood Type Gel Antibody Screen Rhogam Indicated Crossmatch Micro Results - Last 24 Hours: Microbiology 02/08/21 10:24 Group B Streptococcus Culture - Preliminary Vaginal/Rectal Med Orders - Current: Current Medications Acetaminophen (Acetaminophen 325 Mg Tab) 650 mg PO Q6H PRN PRN Reason: Pain/Fever Last Admin: 02/09/21 20:31 Dose: 650 mg Documented by: Benzocaine/Menthol (Benzocaine/Menthol 20%-0.5% [place] 78 Gm Cannister) 0 gm TOP Q4H PRN PRN Reason: Perineal comfort measures Carboprost Tromethamine (Carboprost Tromethamine 250 Mcg/1 Ml Amp) 250 mcg IM ASDIRECTED PRN PRN Reason: Excessive vaginal bleeding Last Admin: 02/08/21 13:55 Dose: 250 mcg Documented by: Docusate Sodium (Docusate Sodium 100 Mg Cap) 100 mg PO BID PRN PRN Reason: Constipation Last Admin: 02/09/21 20:30 Dose: 100 mg Documented by: Ferrous Sulfate (Ferrous Sulfate 325 Mg Tab) 325 mg PO BIDMEALS [facility] Last Admin: 02/09/21 20:31 Dose: 325 mg Documented by: Tranexamic Acid 1,000 mg/ (Sodium Chloride) 110 mls @ 660 mls/hr IV ONETIME PRN PRN Reason: Bleeding Last Admin: 02/08/21 11:35 Dose: 660 mls/hr Documented by: Oxytocin/Sodium Chloride (Pitocin In Ns 30 Unit/500 Ml) 30 unit in 500 mls @ 2 mls/hr IV TITRATE [facility]; Protocol Last Admin: 02/08/21 15:17 Dose: 999 munits/min, 999 mls/hr Documented by: Lactated Ringer's (Ringers, Lactated) 1,000 mls @ 125 mls/hr IV ASDIRECTED [facility] Last Admin: 02/08/21 15:20 Dose: 125 mls/hr Documented by: Magnesium Sulfate (Magnesium Sulfate In Water 20 Gm/500 Ml) 20 gm in 500 mls @ 50 mls/hr IV TITRATE [facility] Last Admin: 02/09/21 01:25 Dose: 50 mls/hr Documented by: Ibuprofen (Ibuprofen 800 Mg Tab) 800 mg PO Q8H PRN PRN Reason: Cramping Last Admin: 02/09/21 20:31 Dose: 800 mg Documented by: Misoprostol (Misoprostol 400 Mcg (4 X 100 Mcg Tab)) 800 mcg RECTAL ONETIME PRN PRN Reason: Hemorrhage Last Admin: 02/08/21 11:35 Dose: 800 mcg Documented by: Oxytocin (Oxytocin 10 Units/1 Ml Sdv) 10 unit IM ONETIME PRN PRN Reason: Bleeding Prenat Multivit/Sarepta/Iron/Folic Ac ( Multivitamin With Calcium/Folic Acid/Iron Tab) 1 each PO DAILY [facility] Last Admin: 02/09/21 09:10 Dose: 1 each Documented by: Simethicone (Simethicone 80 Mg Tab.Chew) 80 mg PO Q4H PRN PRN Reason: Gas Sodium Chloride (Sodium Chloride 0.9% 10 Ml Syringe) 10 ml FLUSH ASDIRECTED PRN PRN Reason: Keep Vein Open Discontinued Medications Azithromycin (Azithromycin 250 Mg Tab) 1,000 mg PO ONETIME ONE Stop: 02/09/21 21:19 Last Admin: 02/09/21 22:07 Dose: 1,000 mg Documented by: Cefazolin Sodium (Cefazolin 1 Gm Vial) Confirm Administered Dose 1 gm .ROUTE .STK-MED ONE Stop: 02/08/21 12:04 Last Admin: 02/08/21 12:10 Dose: Not Given Documented by: Cefazolin Sodium 1 gm/ Sodium (Chloride) 50 mls @ 100 mls/hr IV ONETIME ONE Stop: 02/08/21 12:28 Last Admin: 02/08/21 12:10 Dose: 100 mls/hr Documented by: Magnesium Sulfate 2 gm/ Premix 50 mls @ 25 mls/hr IV ONETIME IRENA Magnesium Sulfate/Dextrose (Magnesium Sulfate In D5w 1 Gm/100 Ml) 4 in 200 mls @ 100 mls/hr IV ONETIME IRENA Magnesium Sulfate 4 gm/ Premix 100 mls @ 300 mls/hr IV ONETIME ONE Stop: 02/08/21 15:29 Last Admin: 02/08/21 15:19 Dose: 300 mls/hr Documented by: Lidocaine HCl (Lidocaine 1% 30 Ml Sdv) Confirm Administered Dose 30 ml .ROUTE .STK-MED ONE Stop: 02/08/21 11:27 Last Admin: 02/08/21 14:18 Dose: Not Given Documented by: - Interaction Support Person: Mother, Significant Other - Recovery Exam Fundal Tone: Firm Fundal Level: 2 Fingerbreadths Below Umbilicus Fundal Placement: Midline Lochia Amount: Scant Lochia Color: Rubra/Red Perineum Description: Intact, Minimal Bruising/Swelling Episiotomy/Laceration: None Bladder Status: Indwelling Catheter in Place Urinary Elimination: Indwelling Catheter - Problem List & Annotations (1) (normal spontaneous vaginal delivery) SNOMED Code(s): 21123575, 248034340 Code(s): O80 - ENCOUNTER FOR FULL-TERM UNCOMPLICATED DELIVERY Status: Acute (2) No care in current SNOMED Code(s): 332715950 Code(s): O09.30 - SUPRVSN OF PREG W INSUFFICIENT ANTENAT CARE, UNSP TRIMESTER Status: Acute (3) Methamphetamine abuse SNOMED Code(s): 957441427 Code(s): F15.10 - OTHER STIMULANT ABUSE, UNCOMPLICATED Status: Acute (4) hemorrhage SNOMED Code(s): 15449362 Code(s): O72.1 - OTHER IMMEDIATE HEMORRHAGE Status: Acute (5) Pre-eclampsia SNOMED Code(s): 963321699 Code(s): O14.90 - UNSPECIFIED PRE-ECLAMPSIA, UNSPECIFIED TRIMESTER Status: Acute - Problem List Review Problem List Initiated/Reviewed/Updated: Yes - Plan Plan:: 1. PPD #2 s/p , PPH necessitating 3upRBC and 1u plasma, retained placental membranes necessitating manual extraction and curettage. 2. Continue routine cares. 3. Continue iron and supplementation. 4. Monitor for signs and symptoms of increased bleeding, fatigue, and signs of infection. 5. Will discharge today to home with close follow-up. Patient was seen and evaluated today by myself and Dr. Karina Prescott. Assessment and plan under advisement of Dr. Prescott. -Nina Castro MD PGY-2
[2021-02-10] MEDS: Prenatal Multivitamin with Calcium/Folic Acid/Iron Tab PO SCH (08:52)
[2021-02-10] MEDS: Ferrous Sulfate 325 MG Tab PO SCH (08:52)
[2021-02-10] MEDS: Ibuprofen 800 MG Tab PO PRN (08:53)
[2021-02-10 10:39] VITALS: BP 132/81; PULSE 78
[2021-02-10] MEDS: Docusate Sodium 100 MG Cap PO PRN (12:36)
[2021-02-10] MEDS: Acetaminophen 325 MG Tab PO PRN (12:37)
--- NOTE | 2021-02-12 01:38 | PN ---
DATE: 02/09/2021 SUBJECTIVE: The patient is day 1, status post with acute blood loss anemia, thrombocytopenia, retained products, status post bimanual exam and operative curettage for retained products, preeclampsia, unknown GBS status, meth use in , and no care. On day 1, the patient endorses continued feelings of fatigue. She endorses mild bleeding and newd-cc-yjpalqad cramping of her lower abdomen. She does have a Hernandez in place and has not been out of bed due to the acute blood loss anemia. The patient had required 2 units of packed red blood cells on the day of delivery . Repeat hemoglobin this morning is also critically low at 6.6. The patient will receive 1 unit of packed red blood cells along with 1 unit of plasma this morning. The patient denies associated symptoms of headache, fever, chills, nausea, vomiting, chest pain, shortness of breath, lower extremity pain or swelling. The patient does continue to endorse just feeling very fatigued. The patient is not breast-feeding. OBJECTIVE: Vital Signs: Temp 97.2, HR 98 bpm, BP 133/61, RR 18 breaths per minute, oxygen saturation 98%. Appearance: Comfortable, lying in bed. HEENT: Slightly pale lips. Lungs: Clear to auscultation bilaterally. Heart: Regular rate and rhythm. No obvious murmurs noted. Abdomen: Soft, mildly tender. Firm uterus palpated 1 cm above umbilicus. Extremities: Trace pedal edema noted bilaterally. No calf pain or tenderness with palpation. Hernandez in place with adequate urine output. LABORATORY DATA: CBC: HGB 6.6, critically low; hematocrit 21.4; platelet count 98. Magnesium: 7.7. ASSESSMENT: The patient is a 25-year-old 5, now para 5 female who presented to Labor and Delivery with no care in active labor. The patient is day #1 status post with subsequent retained placenta requiring manual extraction and vaginal curettage, acute blood loss anemia, thrombocytopenia, meth use in , preeclampsia, unknown GBS status. The patient is currently being treated with IV magnesium. PLAN: 1. We will transfuse 1 unit of packed red blood cells along with 1 unit of plasma at this time. 2. Continue routine cares. 3. Continue to monitor urine output. 4. The patient's status continues to be guarded. We will continue to monitor clinically and closely. The patient was seen and evaluated today by myself and Dr. Karina Prescott. Assessment and plan is under advisement of Dr. Prescott. [facility] /[id number]
== END 2021-02-10 18:10 | disposition home or self-care (01) | DRG 796 ==
LOC: DL.OBCHECK 10:00 → INTOOBSV 11:33 → DL.OB 11:33 → OBSVTOIN 11:35 → DL.OB 11:35
PROVIDERS: ADMIT Family Medicine; ATTEND Family Medicine
PROC: 10E0XZZ Delivery of Products of Conception, External Approach (ICD-10-PCS; principal; 2021-02-08)
PROC: 10D17ZZ Extraction of Products of Conception, Retained, Via Natural or Artificial Opening (ICD-10-PCS; 2021-02-08)
PROC: 30233N1 Transfusion of Nonautologous Red Blood Cells into Peripheral Vein, Percutaneous Approach (ICD-10-PCS; 2021-02-08)
PROC: 3E0334Z Introduction of Serum, Toxoid and Vaccine into Peripheral Vein, Percutaneous Approach (ICD-10-PCS; 2021-02-08)
PROC: 30233K1 Transfusion of Nonautologous Frozen Plasma into Peripheral Vein, Percutaneous Approach (ICD-10-PCS; 2021-02-08)
DX: O99.324 Drug use complicating childbirth (principal); O60.14X0 Preterm labor third trimester with preterm delivery third trimester, not applicable or unspecified; Z37.0 Single live birth; D62 Acute posthemorrhagic anemia; O99.12 Other diseases of the blood and blood-forming organs and certain disorders involving the immune mechanism complicating childbirth; O72.1 Other immediate postpartum hemorrhage; O14.04 Mild to moderate pre-eclampsia, complicating childbirth; O99.62 Diseases of the digestive system complicating childbirth; K21.9 Gastro-esophageal reflux disease without esophagitis; Z20.822 Contact with and (suspected) exposure to COVID-19; F15.10 Other stimulant abuse, uncomplicated; O99.02 Anemia complicating childbirth; D69.6 Thrombocytopenia, unspecified; O14.94 Unspecified pre-eclampsia, complicating childbirth; Z90.49 Acquired absence of other specified parts of digestive tract; O26.893 Other specified pregnancy related conditions, third trimester; Z67.41 Type O blood, Rh negative; Z3A.36 36 weeks gestation of pregnancy
CPT/HCPCS: 36415; 36430; 51702; 59409; 76815; 80305-QW; 80307; 81001; 82565; 82570; 83615; 83735; 84112; 84156; 84450; 84460; 84520; 84550; 85027; 85461; 86592; 86762; 86803; 86850; 86900; 86901; 86920; 86922; 87077; 87081; 87186; 87210; 87340; 87389; 87491; 87591; A9270-GY; J0690; J2590; J2790; J3475; J7120; P9016; P9017; U0002

== ENCOUNTER 2021-06-10 20:28 | Emergency (ER) | payer MEDICAID ==
[2021-06-10] MEDS: Sodium Chloride 0.9% 1,000 ML IV ONE (20:50)
[2021-06-10 20:52] LABS: METHAMPHETAMINES,URINE POSITIVE (NEGATIVE)
[2021-06-10 20:53] LABS: AMPHETAMINES,URINE NEGATIVE (NEGATIVE); BARBITURATES,URINE NEGATIVE (NEGATIVE); BENZODIAZEPINE,URINE NEGATIVE (NEGATIVE); MDMA (ECSTASY), URINE NEGATIVE (NEGATIVE); METHADONE,URINE NEGATIVE (NEGATIVE); OPIATES,URINE NEGATIVE (NEGATIVE); OXYCODONE,URINE NEGATIVE (NEGATIVE); PHENCYCLIDINE,URINE NEGATIVE (NEGATIVE); TCA,URINE NEGATIVE (NEGATIVE)
[2021-06-10] MEDS: Ketorolac 30 MG/ML SDV IVPUSH ONE (21:01)
--- NOTE | 2021-06-10 21:06 | EDM.PDOC ---
"ED HPI GENERAL MEDICAL PROBLEM - General Chief Complaint: Genitourinary Problem Stated Complaint: KIDNEYS Time Seen by Provider: 06/10/21 20:55 Source of Information: Reports: Patient History Limitations: Reports: No Limitations - History of Present Illness INITIAL COMMENTS - FREE TEXT/NARRATIVE: This 25 yo female patient reports to the ED with left flank pain that started yesterday and has been getting worse. The patient reports no previous history of similar symptoms. The patient has been taking OTC medications with little to no symptom relief. 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 Left Flank Pain Score (Numeric/FACES): 8 - Related Data Allergies Allergy/AdvReac Type Severity Reaction Status Date / Time No Known Allergies Allergy Verified 06/10/21 20:51 Home Meds: Home Meds Multivitamin 1 tab PO DAILY 06/10/21 [History] Past Medical History HEENT History: Reports: None Cardiovascular History: Reports: None Respiratory History: Reports: Asthma Gastrointestinal History: Reports: GERD Other Gastrointestinal History: heartburn with Genitourinary History: Reports: STD COATER BRAKE LININGS History: Reports: , Other (See Below) Other COATER BRAKE LININGS History: Per Chart review: first was teen twin gestation delivered 05-30-2015 @ 34w4d with vaginal delivery of 2 boys, induced for pre-eclampsia/HELLP with PPH requiring transfusion (first boy 1871g APGARs 6 & 8, second boy 2480g APGARs 5 & 7), second 12-02-2016 @ 38w6d male 3580g uncomplicated APGARs 9 & 9, third uncomplicated 05-30-2018 @ 41w APGARs 8 & 9. Fourth NPC VAVD 03/24/20 girl 9&9 with PPH, [id number]. Musculoskeletal History: Reports: None Other Musculoskeletal History: left forearm Neurological History: Reports: None Psychiatric History: Reports: Depression Endocrine/Metabolic History: Reports: None Other Endocrine/Metabolic History: TSH 0.01, free T4 1.4 at 16w3d Hematologic History: Reports: Anemia, Blood Transfusion(s) Immunologic History: Reports: None Oncologic (Cancer) History: Reports: None Dermatologic History: Reports: None - Infectious Disease History Infectious Disease History: Reports: None - Past Surgical History Head Surgeries/Procedures: Reports: None HEENT Surgical History: Reports: None Cardiovascular Surgical History: Reports: None Respiratory Surgical History: Reports: None GI Surgical History: Reports: Appendectomy Other GI Surgeries/Procedures: at 14yrs Female Surgical History: Reports: None Social & Family History - Family History Family Medical History: No Pertinent Family History Other OBGYN Family History: mom with SAB X 2 Neurological: Reports: Seizure Endocrine/Metabolic: Reports: Diabetes, type II - Caffeine Use Caffeine Use: Reports: Soda - Living Situation & Occupation Living situation: Reports: Single, with Family ED ROS GENERAL - Review of Systems Review Of Systems: Comprehensive ROS is negative, except as noted in HPI. ED EXAM, RENAL/ - Physical Exam Exam: See Below Exam Limited By: No Limitations General Appearance: Alert, WD/WN, Moderate Distress Eye Exam: Bilateral Eye: EOMI, Normal Inspection, PERRL Ears: Normal External Exam, Normal Canal, Hearing Grossly Normal, Normal TMs Nose: Normal Inspection, Normal Mucosa, No Blood Throat/Mouth: Normal Inspection, Normal Lips, Normal Teeth, Normal Gums, Normal Oropharynx, Normal Voice, No Airway Compromise Head: Atraumatic, Normocephalic Neck: Normal Inspection, Supple, Non-Tender, Full Range of Motion Respiratory/Chest: No Respiratory Distress, Lungs Clear, Normal Breath Sounds, No Accessory Muscle Use, Chest Non-Tender Cardiovascular: Normal Peripheral Pulses, Regular Rate, Rhythm, No Edema, No Gallop, No JVD, No Murmur, No Rub GI/Abdominal: Normal Bowel Sounds, Soft, No Organomegaly, No Distention, No Abnormal Bruit, No Mass, Tender (LLQ) (Female) Exam: Deferred Rectal (Female) Exam: Deferred Back Exam: CVA Tenderness (L) Extremities: Normal Inspection Neurological: Alert, Oriented, CN II-XII Intact, Normal Cognition, Normal Gait, Normal Reflexes, No Motor/Sensory Deficits Psychiatric: Normal Affect, Normal Mood Skin Exam: Warm, Dry, Intact, Normal Color, No Rash Lymphatic: No Adenopathy Course - Vital Signs Last Recorded V/S: Last Vital Signs Temp 100.5 F 06/10/21 20:33 Pulse 137 H 06/10/21 20:33 Resp 18 06/10/21 20:33 BP 109/67 06/10/21 20:33 Pulse Ox 100 06/10/21 20:33 - Orders/Labs/Meds Orders: Active Orders 24 hr Category Date Time Status CULTURE URINE [RM] Stat Lab 06/10/21 20:32 Received Labs: Laboratory Tests 06/10/21 06/10/21 06/10/21 Range/Units 20:32 20:32 20:32 Urine Color Yellow (YELLOW) Urine Appearance Slightly cloudy (CLEAR) Urine pH 6.0 (5.0-9.0) Ur Specific [place] 1.020 (1.005-1.030) Urine Protein >=300 H (NEGATIVE) Urine Glucose (UA) Negative (NEGATIVE) Urine Ketones Negative (NEGATIVE) Urine Occult Blood Moderate H (NEGATIVE) Urine Nitrite Positive H (NEGATIVE) Urine Bilirubin Negative (NEGATIVE) Urine Urobilinogen 2.0 H (0.2-1.0) mg/dL Ur Leukocyte Esterase Small H (NEGATIVE) Urine RBC 0-5 (0-5) /HPF Urine WBC 30-40 H (0-5/HPF) /HPF Ur Epithelial Cells Few (NOT SEEN) /HPF Urine Bacteria Many H (0-FEW/HPF) /HPF Urine HCG, Qual Negative Urine Opiates Screen Negative (NEGATIVE) Ur Oxycodone Screen Negative (NEGATIVE) Urine Methadone Screen Negative (NEGATIVE) Ur Barbiturates Screen Negative (NEGATIVE) U Tricyclic Antidepress Negative (NEGATIVE) Ur Phencyclidine Scrn Negative (NEGATIVE) Ur Amphetamine Screen Negative (NEGATIVE) U Methamphetamines Scrn Positive H (NEGATIVE) Urine MDMA Screen Negative (NEGATIVE) U Benzodiazepines Scrn Negative (NEGATIVE) Urine Cocaine Screen Negative (NEGATIVE) U Marijuana (THC) Screen Positive H (NEGATIVE) Meds: Medications Discontinued Medications Generic Name Dose Route Start Last Admin Trade Name Freq PRN Reason Stop Dose Admin Ciprofloxacin 500 mg 06/10/21 22:30 Ciprofloxacin 500 Mg Tab PO 06/10/21 22:31 ONETIME ONE Sodium Chloride 1,000 mls @ 999 mls/hr 06/10/21 20:50 06/10/21 20:50 Normal Saline IV 06/10/21 21:50 999 mls/hr .BOLUS ONE Administration Ketorolac Tromethamine 30 mg 06/10/21 20:55 06/10/21 21:01 Ketorolac 30 Mg/Ml Sdv IVPUSH 06/10/21 20:56 30 mg ONETIME ONE Administration - Radiology Interpretation Free Text/Narrative:: [facility] [place] [facility] Final Radiology Report Call: [phone] assistance Online chat: [email or web address] Name: NOEMY BOSE Age: 25Years F Date: 06/10/2021 SSN: -- : 1995 Study: CT ABDOMEN PELVIS WO CONT Requesting Physician: Mian Castillo Images: [id number] Addl Studies: Provided Clinical History: left flank pain with hematuria Contrast: Without Contrast Medium: Contrast Amount: Contrast Method: Page 1 of 2 PROCEDURE INFORMATION: Exam: CT Abdomen And Pelvis Without Contrast Exam date and time: 06/10/2021 9:08 PM Age: 25 years old Clinical indication: Other: Left sided pain; Additional info: Left flank pain with hematuria TECHNIQUE: Imaging protocol: Computed tomography of the abdomen and pelvis without contrast. Radiation optimization: All CT scans at this facility use at least one of these dose optimization techniques: automated exposure control; mA and/or kV adjustment per patient size (includes targeted exams where dose is matched to clinical indication); or iterative r econstruction. COMPARISON: No relevant prior studies available. FINDINGS: Lungs: The visualized portions of the lung bases are normal. Liver: Moderate hepatomegaly. No masses are noted. Gallbladder and bile ducts: Normal. No calcified stones. No ductal dilation. Pancreas: Normal. No ductal dilation. Spleen: Moderate splenomegaly. No masses are noted. Adrenal glands: Normal. No mass. Kidneys and ureters: The proximal ureters appear normal. The distal ureters are difficult to follow but no definite stones are identified. Stomach and bowel: Unremarkable. No obstruction. No mucosal thickening. Appendix: No evidence of appendicitis. Intraperitoneal space: Unremarkable. No free air. No significant fluid collection. Vasculature: Unremarkable. No abdominal aortic aneurysm. NOEMY BOSE | Final Radiology Report CONFIDENTIALITY STATEMENT This report is intended only for use by the referring physician, and only in accordance with law. If you received this in error, call [phone]. Page 2 of 2 Lymph nodes: Small lymph nodes are seen in the inguinal regions as well as in the periaortic area but no enlarged lymph nodes are identified. Urinary bladder: No abnormality the urinary bladder is identified. Reproductive: Unremarkable as visualized. Bones/joints: Unremarkable. No acute fracture. Soft tissues: Unremarkable. IMPRESSION: Hepatosplenomegaly, etiology indeterminate. 2. No definite abnormality of the kidneys or bladder are identified. Thank you for allowing us to participate in the care of your patient. Dictated and Authenticated by: Colton Vela MD 06/10/2021 10:27 PM Central Time ([place] & [place]) Departure - Departure Time of Disposition: 22:33 Disposition: Home, Self-Care 01 Condition: Fair Clinical Impression: UTI, Urinary tract infectious disease - Discharge Information *PRESCRIPTION DRUG MONITORING PROGRAM REVIEWED*: Not Applicable *COPY OF PRESCRIPTION DRUG MONITORING REPORT IN PATIENT CHARLA: Not Applicable Instructions: Urinary Tract Infection, Adult, [id number] Forms: ED Department Discharge Care Plan Goals: The patient was advised of the examination, lab and CT results during the visit. The patient was given an oral dose of Cipro (500 mg) while in the ED. The patient was discharged with a script for Cipro (500 mg) #10 to take 1 by mouth 2 times per day for 5 days. The patient was encouraged to increase her oral fluid intake over the next week. If the patient has any additional symptoms or concerns, the patient should either return to the emergency department or visit her primary care facility. Sepsis Event Note (ED) - Focused Exam Vital Signs: Vital Signs Temp Pulse Resp BP Pulse Ox 06/10/21 20:33 100.5 F 137 H 18 109/67 100 - My Orders Last 24 Hours: My Active Orders 06/10/21 20:32 CULTURE URINE [RM] Stat - Assessment/Plan Last 24 Hours: My Active Orders 06/10/21 20:32 CULTURE URINE [RM] Stat"
--- NOTE | 2021-06-10 22:28 | CT ---
PROCEDURE INFORMATION: Exam: CT Abdomen And Pelvis Without Contrast Exam date and time: 06/10/2021 9:08 PM Age: 25 years old Clinical indication: Other: Left sided pain; Additional info: Left flank pain with hematuria TECHNIQUE: Imaging protocol: Computed tomography of the abdomen and pelvis without contrast. Radiation optimization: All CT scans at this facility use at least one of these dose optimization techniques: automated exposure control; mA and/or kV adjustment per patient size (includes targeted exams where dose is matched to clinical indication); or iterative reconstruction. COMPARISON: No relevant prior studies available. FINDINGS: Lungs: The visualized portions of the lung bases are normal. Liver: Moderate hepatomegaly. No masses are noted. Gallbladder and bile ducts: Normal. No calcified stones. No ductal dilation. Pancreas: Normal. No ductal dilation. Spleen: Moderate splenomegaly. No masses are noted. Adrenal glands: Normal. No mass. Kidneys and ureters: The proximal ureters appear normal. The distal ureters are difficult to follow but no definite stones are identified. Stomach and bowel: Unremarkable. No obstruction. No mucosal thickening. Appendix: No evidence of appendicitis. Intraperitoneal space: Unremarkable. No free air. No significant fluid collection. Vasculature: Unremarkable. No abdominal aortic aneurysm. Lymph nodes: Small lymph nodes are seen in the inguinal regions as well as in the periaortic area but no enlarged lymph nodes are identified. Urinary bladder: No abnormality the urinary bladder is identified. Reproductive: Unremarkable as visualized. Bones/joints: Unremarkable. No acute fracture. Soft tissues: Unremarkable. IMPRESSION: Hepatosplenomegaly, etiology indeterminate. 2. No definite abnormality of the kidneys or bladder are identified.
[2021-06-10] MEDS: Ciprofloxacin 500 MG Tab PO ONE (22:37)
[2021-06-10 22:46] VITALS: BP 106/62; PULSE 83
== END 2021-06-10 22:41 | disposition home or self-care (01) ==
LOC: DL.ED 20:28
DX: N39.0 Urinary tract infection, site not specified (principal)
CPT/HCPCS: 74176; 80305-QW; 81001; 81025; 87086; 87088; 87186; 96374; 99284-25; A9270-GY; J1885; J7030